=== PATIENT | male | born 1950 | race African-American/Black ===

== ENCOUNTER 2019-06-03 16:34 | Inpatient (IN) | payer MEDICARE, OTHER ==
[2019-06-03] MEDS ORDERED: NALOXONE 0.4 MG/ML 1 ML VIAL IV PRN (19:26)
--- NOTE | 2019-06-03 19:42 | P.HPIM ---
History of Present Illness H&P Date: 06/03/19 Chief Complaint: Cough, shortness of breath 69-year-old male with PMH of CVA with right-sided weakness, history of seizures, diabetes mellitus, hypertension presents to the ED for shortness of breath. Patient states that the symptoms of been ongoing for the past 2 weeks. He complains of cough and inability to bring up sputum. Symptoms continue to worsen which prompted the patient to come to the ED. He denies any chest pain, palpitations, nausea or vomiting, fever or chills, changes in urination or bowel habits. No changes in appetite or weight. EKG showed sinus tachycardia with heart rate 103, T-wave abnormalities. Patient was noted to have a T-max of 102.8 Fahrenheit, BP as low as 93/44. He was given 2.5 L bolus. He was given Tylenol 650 mg by mouth. CBC showed hemoglobin of 10.5, hematocrit 35%. BUN was 35. Magnesium was 2. Albumin was 3.3. Troponin was 0.18, 0.19. CRP was 54.7. Lactic acid was negative. Urinalysis showed moderate leukocyte esterase. Chest x-ray showed mild bibasilar airspace disease. Patient was tested for COVID at that time. Pro-calcitonin was elevated at 0.22. Blood cultures were collected. His home medication include aspirin 81 mg by mouth daily, Lipitor 40 mg by mouth daily, lispro on a sliding scale, Lantus 10 units at bedtime, Keppra 250 mg by mouth twice a day, lisinopril 10 mg by mouth once a day, Lyrica 150 mg by mouth twice a day, nifedipine 30 mg by mouth once a day, [place] 51 tab by mouth every 8 hours as needed for pain, omeprazole 20 mg by mouth daily, sertraline 100 mg by mouth daily. Review of Systems Pertinent positives and negatives as discussed in HPI, a complete review of systems was performed and all other systems are negative. Past Medical History Past Medical History: Diabetes Mellitus, Deep Vein Thrombosis (DVT) Additional Past Medical History / Comment(s): muscle weakness, urinary incontinence, hemiplegia, right bka, History of Any Multi-Drug Resistant Organisms: Unobtainable Smoking Status: Former smoker - Past Family History Father History Unknown: Yes Medications and Allergies Home Medications Medication Instructions Recorded Confirmed Type Acetaminophen Tab [Tylenol] 650 mg PO Q6H PRN 06/03/19 06/03/19 History Ascorbic Acid [Vitamin C] 500 mg PO DAILY 06/03/19 06/03/19 History Aspirin EC [Ecotrin Low Dose] 81 mg PO DAILY 06/03/19 06/03/19 History Atorvastatin Calcium [Lipitor] 40 mg PO DAILY 06/03/19 06/03/19 History HYDROcodone/APAP 5-325MG [[place] 1 tab PO Q8H PRN 06/03/19 06/03/19 History 5-325] Hydrocerin Cream 1 applic TOPICAL Q12H PRN 06/03/19 06/03/19 History INSULIN LISPRO (HumaLOG) [humaLOG] See Protocol SQ ACHS 06/03/19 06/03/19 History Insulin Glargine,Hum.rec.anlog 10 unit SQ HS 06/03/19 06/03/19 History [Lantus Solostar] Lisinopril [Zestril] 10 mg PO DAILY 06/03/19 06/03/19 History Magnesium Oxide [Magox 400] 400 mg PO DAILY 06/03/19 06/03/19 History Methocarbamol [Robaxin] 750 mg PO BID 06/03/19 06/03/19 History Multivitamins, Thera [Multivitamin 1 tab PO DAILY 06/03/19 06/03/19 History (formulary)] NIFEdipine [NIFEdipine ER] 30 mg PO DAILY 06/03/19 06/03/19 History Omeprazole 20 mg PO DAILY 06/03/19 06/03/19 History Pregabalin [Lyrica] 150 mg PO BID 06/03/19 06/03/19 History Sertraline [Zoloft] 100 mg PO DAILY 06/03/19 06/03/19 History levETIRAcetam 250 mg PO BID 06/03/19 06/03/19 History Allergies Allergy/AdvReac Type Severity Reaction Status Date / Time No Known Allergies Allergy Verified 06/03/19 18:54 Physical Exam Vitals: Intake and Output 06/03/19 06/03/19 06/03/19 06:59 14:59 22:59 Other: Weight 93 kg General: [non toxic], [no distress], [appears at stated age] Derm: [warm], [dry] Head: [atraumatic], [normocephalic], [symmetric] Eyes: [EOMI], [no lid lag], [anicteric sclera] Mouth: [no lip lesion], [mucus membranes moist] Cardiovascular: [S1S2 reg], [no murmur], [positive DP pulse left lower extremity], Lungs: [Coarse breath sounds bilateral], [no rhonchi, no rales] , [no accessory muscle use] Abdominal: [soft], [ nontender to palpation], [no guarding], [no appreciable organomegaly] Ext: [no gross muscle atrophy], [no edema], [no contractures], [right BKA] Neuro: [ CN II-XI grossly intact], [0 out of 5 strength in the right upper extremity] Psych: [Alert], [oriented], [appropriate affect] Thrombosis Risk Factor Assmnt - Choose All That Apply Each Factor Represents 1 point: Obesity (BMI >25) Each Risk Factor Represents 2 Points: Age 61-74 years Thrombosis Risk Factor Assessment Total Risk Factor Score: 3 Thrombosis Risk Factor Assessment Level: Moderate Risk Assessment and Plan Assessment: Sepsis likely related to COVID 19 pneumonia with possible superimposed bacterial pneumonia Troponin elevation likely demand ischemia from above process Abnormal urinalysis History of CVA Diabetes mellitus History of seizures Hypertension Patient does meet sepsis criteria with low BP responding to IVF. T-max of 102.8 Fahrenheit at outside hospital. Tachycardia with positive source of infection seen on chest x-ray. Urinalysis shows moderate leukocyte esterase. Elevated CRP. Chest x-ray showing bibasilar airspace disease. Plans: Continue Rocephin and doxycycline for possible community-acquired pneumonia. Follow blood cultures. Follow sputum culture. Hydroxychloroquine for COVID. Tylenol as needed for fever. Repeat chest x-ray tomorrow morning. Follow urine culture. Follow CPK, LDH, CRP, ferritin. Infectious disease consulted. EKG to check for QTC. Troponin 0.18, 0.19 with EKG showing sinus tachycardia and T-wave abnormality. Plans: Trend troponin/EKG to rule out ACS. Follow-up echocardiogram. Telemetry monitoring. Urinalysis positive leukocyte esterase. Plans: Continue Rocephin. Follow urine culture. Plans: Continue aspirin. Continue Lipitor. Plans: Insulin sliding scale. Regular Accu-Cheks. Hypoglycemic precautions. Plans: Continue Keppra. Plans: Continue lisinopril. Continue nifedipine. Monitor vitals, adjust medications as necessary. DVT prophylaxis: [Heparin] Discussed with: [Patient] Anticipated discharge: [2-3 days] Anticipated discharge place: [Home] A total of [45] minutes was spent on the care of this complex patient more than 50% of the time was spent in counseling and care coordination. Patient names his brother decision maker if he can't make decisions for himself. Patient would like to be full code after a long discussion.
[2019-06-03 20:30] LABS: Glucose,Whole Blood 277 mg/dL (75-99)
[2019-06-03] MEDS: HEPARIN SODIUM,PORCINE 5,000 UNIT/ML 1 ML VIAL SQ SCH (20:47)
[2019-06-03] MEDS: levETIRAcetam 250 MG TAB PO SCH (20:47)
[2019-06-03] MEDS: DOXYCYCLINE 100 MG CAP PO SCH (20:47)
[2019-06-03] MEDS: HYDROXYCHLOROQUINE SULFATE 200 MG TAB PO SCH (20:47)
[2019-06-03] MEDS: PREGABALIN 75 MG CAP PO SCH (20:48)
[2019-06-03 20:51] LABS: Basophils % (A) 0 %; Eosinophils % (A) 1 %; HCT 37.6 % (39.0-53.0); HGB 11.5 gm/dL (13.0-17.5); Hypochromasia Marked; Lymphocytes # (A) 0.9 k/uL (1.0-4.8); Lymphocytes % (A) 20 %; MCH 26.1 pg (25.0-35.0); MCHC 30.7 g/dL (31.0-37.0); MCV 85.2 fL (80.0-100.0); Mean Platelet Volume 8.5; Monocytes # (A) 0.2 k/uL (0-1.0); Monocytes % (A) 5 %; Neutrophils # (A) 3.1 k/uL (1.3-7.7); Neutrophils % (A) 71 %; Platelet Count 132 k/uL (150-450); RBC 4.42 m/uL (4.30-5.90); RDW 15.4 % (11.5-15.5); WBC 4.4 k/uL (3.8-10.6)
[2019-06-03] MEDS: ACETAMINOPHEN TAB 325 MG TAB PO PRN (20:53)
[2019-06-03 21:04] LABS: Albumin 3.5 g/dL (3.5-5.0); Potassium 4.6 mmol/L (3.5-5.1); Total Bilirubin 0.4 mg/dL (0.2-1.3); Total Protein 7.4 g/dL (6.3-8.2)
[2019-06-03] MEDS ORDERED: INSULIN ASPART (NovoLOG) 100 UNIT/ML VIAL SQ ONE (22:02)
[2019-06-04 02:05] LABS: Glucose,Whole Blood 200 mg/dL (75-99)
[2019-06-04 07:06] LABS: Glucose,Whole Blood 170 mg/dL (75-99)
[2019-06-04] MEDS: INSULIN ASPART (NovoLOG) 100 UNIT/ML VIAL SQ SCH ×3 (07:33→17:10)
[2019-06-04] MEDS: HEPARIN SODIUM,PORCINE 5,000 UNIT/ML 1 ML VIAL SQ SCH ×2 (07:33→20:28)
[2019-06-04] MEDS: SERTRALINE 100 MG TAB PO SCH (07:34)
[2019-06-04] MEDS: LISINOPRIL 10 MG TAB PO SCH (07:34)
[2019-06-04] MEDS: ASPIRIN 81 MG PO SCH (07:34)
[2019-06-04] MEDS: PREGABALIN 75 MG CAP PO SCH ×2 (07:34→20:28)
[2019-06-04] MEDS: ATORVASTATIN 40 MG TAB PO SCH (07:34)
[2019-06-04] MEDS: HYDROXYCHLOROQUINE SULFATE 200 MG TAB PO SCH ×2 (07:35→20:28)
[2019-06-04] MEDS: DOXYCYCLINE 100 MG CAP PO SCH ×2 (07:36→20:28)
[2019-06-04] MEDS: levETIRAcetam 250 MG TAB PO SCH ×2 (07:36→20:29)
[2019-06-04] MEDS: NIFEdipine XL 30 MG TAB.ER.24 PO SCH (07:36)
--- NOTE | 2019-06-04 08:13 | XR ---
EXAMINATION TYPE: XR chest 1V portable DATE OF EXAM: 06/04/2019 Comparison: None Clinical History: [id number] male COVID, PNA Findings: Heart normal size. Obscuration of the lower aortic descent. Focal bibasilar opacities and possible sm all left effusion. Impression: Focal bibasilar infiltrates. Possible small left effusion.
--- NOTE | 2019-06-04 08:34 | ECHOF ---
Referral Reason:SOB MEASUREMENTS -------- HEIGHT: 190.5 cm WEIGHT: 93.0 kg BP: 164/90 RVIDd: 2.9 cm (< 3.3) IVSd: 1.3 cm (0.6 - 1.1) LVIDd: 4.0 cm (3.9 - 5.3) LVPWd: 1.2 cm (0.6 - 1.1) IVSs: 1.5 cm LVIDs: 2.9 cm LVPWs: 1.7 cm LA Diam: 3.2 cm (2.7 - 3.8) LAESV Index (A-L): 18.66 ml/m Ao Diam: 3.4 cm (2.0 - 3.7) AV Cusp: 2.3 cm (1.5 - 2.6) MV EXCURSION: 18.829 mm (> 18.000) MV EF SLOPE: 108 mm/s (70 - 150) EPSS: 0.6 cm MV E Sourav: 0.85 m/s MV DecT: 160 ms MV A Sourav: 0.73 m/s MV E/A Ratio: 1.17 RAP: 5.00 mmHg RVSP: 37.90 mmHg FINDINGS -------- Sinus rhythm. This was a technically adequate study. The left ventricular size is normal. There is mild concentric left ventricular hypertrophy. Overa ll left ventricular systolic function is normal with, an EF between 55 - 60 %. The right ventricle is normal in size. Normal LA size by volume 22+/-6 ml/m2. The right atrial size is normal. The aortic valve is trileaflet, and appears structurally normal. No aortic stenosis or regurgitation. The mitral valve is normal. Mild mitral regurgitation is present. Mild tricuspid regurgitation present. There is mild pulmonary hypertension. The right ventricular systolic pressure, as measured by Doppler, is 37.90mmHg. There is no pulmonic regurgitation present. The aortic root size is normal. Normal inferior vena cava with normal inspiratory collapse consistent with estimated right atrial pre ssure of 5 mmHg. There is no pericardial effusion. CONCLUSIONS -------- 1. There is mild concentric left ventricular hypertrophy. 2. Overall left ventricular systolic function is normal with, an EF between 55 - 60 %. 3. Normal LA size by volume 22+/-6 ml/m2. 4. The aortic valve is trileaflet, and appears structurally normal. No aortic stenosis or regurgitati on. 5. Mild mitral regurgitation is present. 6. Mild tricuspid regurgitation present. 7. There is mild pulmonary hypertension. CORPORATE COMMUNICATIONS ASSOCIATE: Isabel Crisostomo RDCS
[2019-06-04 09:17] LABS: INR 0.9 (<1.2); Prothrombin Time 9.7 sec (9.0-12.0)
[2019-06-04 09:20] LABS: Basophils % (A) 0 %; Eosinophils % (A) 1 %; HCT 33.2 % (39.0-53.0); HGB 10.1 gm/dL (13.0-17.5); Hypochromasia Slight; Lymphocytes # (A) 0.8 k/uL (1.0-4.8); Lymphocytes % (A) 16 %; MCH 25.7 pg (25.0-35.0); MCHC 30.4 g/dL (31.0-37.0); MCV 84.7 fL (80.0-100.0); Mean Platelet Volume 8.5; Monocytes # (A) 0.2 k/uL (0-1.0); Monocytes % (A) 5 %; Neutrophils # (A) 3.5 k/uL (1.3-7.7); Neutrophils % (A) 76 %; Platelet Count 136 k/uL (150-450); RBC 3.93 m/uL (4.30-5.90); RDW 15.6 % (11.5-15.5); WBC 4.6 k/uL (3.8-10.6)
[2019-06-04 09:25] LABS: ALT 22 U/L (4-49); AST 30 U/L (17-59); African American GFR (CKD) >90 (>60 ml/min/1.73 sqM); Albumin 3.3 g/dL (3.5-5.0); Alkaline Phosphatase 87 U/L (38-126); Anion Gap 9 mmol/L; Blood Urea Nitrogen 32 mg/dL (9-20); C Reactive Protein 57.4 mg/L (<10.0); Calcium 7.7 mg/dL (8.4-10.2); Carbon Dioxide 22 mmol/L (22-30); Chloride 108 mmol/L (98-107); Glucose 171 mg/dL (74-99); LDH 754 U/L (313-618); Magnesium 2.2 mg/dL (1.6-2.3); Non-African American GFR(CKD) >90 (>60 ml/min/1.73 sqM); Potassium 4.6 mmol/L (3.5-5.1); Sodium 139 mmol/L (137-145); Total Bilirubin 0.3 mg/dL (0.2-1.3); Total Protein 7.3 g/dL (6.3-8.2)
[2019-06-04 11:45] LABS: Glucose,Whole Blood 141 mg/dL (75-99)
[2019-06-04 15:34] LABS: Ferritin 258.3 ng/mL (22.0-322.0)
[2019-06-04 16:35] LABS: Amorphous Sediment,Urine Rare /hpf; Appearance,Urine Turbid (Clear); Bacteria,Urine Many /hpf; Bilirubin,Urine Negative (Negative); Blood,Urine Small (Negative); Color,Urine Yellow; Glucose,Urine (UA) Negative (Negative); Granular Casts,Urine 24 /lpf (0); Hyaline Casts,Urine 15 /lpf (0-2); Ketones,Urine Negative (Negative); Leukocyte Esterase,Urine Large (Negative); Mucus,Urine Rare /hpf; Nitrite,Urine Positive (Negative); PH, Urine 5.5 (5.0-8.0); Protein,Urine 2+ (Negative); RBC,Urine 7 /hpf (0-5); Specific Gravity,Urine 1.021 (1.001-1.035); Urobilinogen,Urine <2.0 mg/dL (<2.0); WBC,Urine 107 /hpf (0-5)
[2019-06-04 17:02] LABS: Glucose,Whole Blood 140 mg/dL (75-99)
--- NOTE | 2019-06-04 17:22 | P.PN ---
Subjective Progress Note Date: 06/04/19 Principal diagnosis: COVID19 Patient was seen and examined. No acute events overnight. Discussed with nursing, confirms positive COVID result from outside hospital. Patient reports slightly worse breathing than yesterday. He denies any chest pain or palpitations. No nausea or vomiting. No fever or chills. Objective - Vital Signs Vital signs: Vital Signs Temp 100.9 F H 06/04/19 15:27 Pulse 94 06/04/19 15:27 Resp 20 06/04/19 15:27 BP 115/67 06/04/19 15:27 Pulse Ox 96 06/04/19 15:27 Intake & Output 06/03/19 06/04/19 06/04/19 18:59 06:59 18:59 Weight 93 kg Other: Voiding Method Urinal Urinal # Voids 1 2 # Bowel Movements 1 - Exam General: [non toxic], [no distress], [appears at stated age] Derm: [warm], [dry] Head: [atraumatic], [normocephalic], [symmetric] Eyes: [EOMI], [no lid lag], [anicteric sclera] Mouth: [no lip lesion], [mucus membranes moist] Cardiovascular: [S1S2 reg], [no murmur], [positive DP pulse left lower extremity], Lungs: [Coarse breath sounds bilateral], [no rhonchi, no rales] , [no accessory muscle use] Abdominal: [soft], [ nontender to palpation], [no guarding], [no appreciable organomegaly] Ext: [no gross muscle atrophy], [no edema], [no contractures], [right BKA] Neuro: [0 out of 5 strength in the right upper extremity] Psych: [Alert], [oriented], [appropriate affect] - Labs CBC & Chem 7: 06/04/19 08:53 06/04/19 08:53 Labs: Abnormal Lab Results - Last 24 Hours (Table) 06/03/19 06/03/19 06/03/19 Range/Units 20:29 20:40 20:40 RBC (4.30-5.90) m/uL Hgb 11.5 L (13.0-17.5) gm/dL Hct 37.6 L (39.0-53.0) % MCHC 30.7 L (31.0-37.0) g/dL RDW (11.5-15.5) % Plt Count 132 L (150-450) k/uL Lymphocytes # 0.9 L (1.0-4.8) k/uL Chloride (98-107) mmol/L Carbon Dioxide 20 L (22-30) mmol/L BUN 40 H (9-20) mg/dL Glucose 269 H (74-99) mg/dL POC Glucose (mg/dL) 277 H (75-99) mg/dL Calcium 8.0 L (8.4-10.2) mg/dL Lactate Dehydrogenase (313-618) U/L C-Reactive Protein (<10.0) mg/L Albumin (3.5-5.0) g/dL Urine Protein (Negative) Urine Blood (Negative) Ur Leukocyte Esterase (Negative) Urine RBC (0-5) /hpf Urine WBC (0-5) /hpf Urine WBC Clumps (None) /hpf Amorphous Sediment (None) /hpf Urine Bacteria (None) /hpf Hyaline Casts (0-2) /lpf Urine Mucus (None) /hpf 06/04/19 06/04/19 06/04/19 Range/Units 02:03 07:03 08:53 RBC 3.93 L (4.30-5.90) m/uL Hgb 10.1 L (13.0-17.5) gm/dL Hct 33.2 L (39.0-53.0) % MCHC 30.4 L (31.0-37.0) g/dL RDW 15.6 H (11.5-15.5) % Plt Count 136 L (150-450) k/uL Lymphocytes # 0.8 L (1.0-4.8) k/uL Chloride (98-107) mmol/L Carbon Dioxide (22-30) mmol/L BUN (9-20) mg/dL Glucose (74-99) mg/dL POC Glucose (mg/dL) 200 H 170 H (75-99) mg/dL Calcium (8.4-10.2) mg/dL Lactate Dehydrogenase (313-618) U/L C-Reactive Protein (<10.0) mg/L Albumin (3.5-5.0) g/dL Urine Protein (Negative) Urine Blood (Negative) Ur Leukocyte Esterase (Negative) Urine RBC (0-5) /hpf Urine WBC (0-5) /hpf Urine WBC Clumps (None) /hpf Amorphous Sediment (None) /hpf Urine Bacteria (None) /hpf Hyaline Casts (0-2) /lpf Urine Mucus (None) /hpf 06/04/19 06/04/19 06/04/19 Range/Units 08:53 11:42 15:15 RBC (4.30-5.90) m/uL Hgb (13.0-17.5) gm/dL Hct (39.0-53.0) % MCHC (31.0-37.0) g/dL RDW (11.5-15.5) % Plt Count (150-450) k/uL Lymphocytes # (1.0-4.8) k/uL Chloride 108 H (98-107) mmol/L Carbon Dioxide (22-30) mmol/L BUN 32 H (9-20) mg/dL Glucose 171 H (74-99) mg/dL POC Glucose (mg/dL) 141 H (75-99) mg/dL Calcium 7.7 L (8.4-10.2) mg/dL Lactate Dehydrogenase 754 H (313-618) U/L C-Reactive Protein 57.4 H (<10.0) mg/L Albumin 3.3 L (3.5-5.0) g/dL Urine Protein 2+ H (Negative) Urine Blood Small H (Negative) Ur Leukocyte Esterase Large H (Negative) Urine RBC 7 H (0-5) /hpf Urine WBC 107 H (0-5) /hpf Urine WBC Clumps Many H (None) /hpf Amorphous Sediment Rare H (None) /hpf Urine Bacteria Many H (None) /hpf Hyaline Casts 15 H (0-2) /lpf Urine Mucus Rare H (None) /hpf 06/04/19 Range/Units 17:00 RBC (4.30-5.90) m/uL Hgb (13.0-17.5) gm/dL Hct (39.0-53.0) % MCHC (31.0-37.0) g/dL RDW (11.5-15.5) % Plt Count (150-450) k/uL Lymphocytes # (1.0-4.8) k/uL Chloride (98-107) mmol/L Carbon Dioxide (22-30) mmol/L BUN (9-20) mg/dL Glucose (74-99) mg/dL POC Glucose (mg/dL) 140 H (75-99) mg/dL Calcium (8.4-10.2) mg/dL Lactate Dehydrogenase (313-618) U/L C-Reactive Protein (<10.0) mg/L Albumin (3.5-5.0) g/dL Urine Protein (Negative) Urine Blood (Negative) Ur Leukocyte Esterase (Negative) Urine RBC (0-5) /hpf Urine WBC (0-5) /hpf Urine WBC Clumps (None) /hpf Amorphous Sediment (None) /hpf Urine Bacteria (None) /hpf Hyaline Casts (0-2) /lpf Urine Mucus (None) /hpf Assessment and Plan Assessment: Sepsis likely related to COVID 19 pneumonia with possible superimposed bacterial pneumonia Troponin elevation likely demand ischemia from above process Abnormal urinalysis History of CVA Diabetes mellitus History of seizures Hypertension Patient does meet sepsis criteria with low BP responding to IVF. T-max of 102.8 Fahrenheit at outside hospital. Tachycardia with positive source of infection seen on chest x-ray. Urinalysis shows moderate leukocyte esterase. Elevated CRP. Chest x-ray showing bibasilar airspace disease. Plans: Continue Rocephin and doxycycline for possible community-acquired pneumonia. Follow blood c ultures. Follow sputum culture. Hydroxychloroquine for COVID. Tylenol as needed for fever. Repeat chest x-ray tomorrow morning. Follow urine culture. Follow CPK, LDH, CRP, ferritin. Infectious disease consulted. EKG to check for QTC. Troponin 0.18, 0.19, less than 0.012 with EKG showing sinus tachycardia and T- wave abnormality. Echocardiogram shows EF 55-60%. Plans: ACS ruled out. Tele metry monitoring. Urinalysis positive leukocyte esterase. Plans: Continue Rocephin. Follow urine culture. Plans: Continue aspirin. Continue Lipitor. Plans: Insulin sliding scale. Regular Accu-Cheks. Hypoglycemic precautions. Plans: Continue Keppra. Plans: Continue lisinopril. Continue nifedipine. Monitor vitals, adjust medications as necessary. [Patient currently on 2 L nasal cannula. Continues to spike fevers. Treated with hydroxychloroquine. Urine culture pending. Blood culture pending. Sputum culture pending. Infectious disease consultation pending. He is pending clinical improvement.]
[2019-06-04] MEDS: ACETAMINOPHEN TAB 325 MG TAB PO PRN (20:28)
[2019-06-04 21:13] LABS: Glucose,Whole Blood 130 mg/dL (75-99)
[2019-06-04] MEDS ORDERED: SODIUM CHLORIDE 0.9% 1,000 ML IV ONE (23:43)
--- NOTE | 2019-06-04 23:52 | P.CONS ---
History of Present Illness - Reason for Consult Consult date: 06/04/19 COVID19 Infection Requesting physician: Michael Perdomo - Chief Complaint shortness of breath x 2 weeks - History of Present Illness Patient is a 69-year-old -[place] male with a past medical history (CVA with right-sided weakness history of seizure disorder and diabetes presenting to the outside facility ER with chief complaints of increasing shortness of breath patient symptom has been getting worse for about 2 weeks before he presented to hospital patient denies of any chest pain he did have some cough but no sputum denies any nausea no vomiting abdominal no diarrhea on arrival to the ER the patient was febrile with a temperature of 102 F he was slightly hypertensive requiring a fluid bolus patient did have elevated CRP of 54.7 lipase was negative patient did have chest pain suggestive of bibasilar airspace disease patient was tested for COVID-19 and subsequently patient be transferred to this facility for further management of underlying respiratory condition patient did have a chest x-ray completed this morning which shows focal bibasilar infiltrate possible small effusion this patient afebrile to low-grade fever 100.9 this afternoon and patient requires low-dose supplemental oxygen on a CBC did have evidence of leukopenia elevated LDH and a CRP will not show large leukocyte esterase is many WBC in clumps patient is currently being treated with Rocephin Vibramycin Plaquenil infectious was consulted for further recommendation regarding antibiotic therapy most of the question has been obtained from review the chart as the patient does not good historian. Review of Systems Positive point has been mentioned in HPI complete review could not be obtained because of underlying mental status Past Medical History Past Medical History: Diabetes Mellitus, Deep Vein Thrombosis (DVT) Additional Past Medical History / Comment(s): muscle weakness, urinary incontinence, hemiplegia, right bka, History of Any Multi-Drug Resistant Organisms: Unobtainable Smoking Status: Former smoker - Past Family History Father History Unknown: Yes Medications and Allergies Home Medications Medication Instructions Recorded Confirmed Type Acetaminophen Tab [Tylenol] 650 mg PO Q6H PRN 06/03/19 06/03/19 History Ascorbic Acid [Vitamin C] 500 mg PO DAILY 06/03/19 06/03/19 History Aspirin EC [Ecotrin Low Dose] 81 mg PO DAILY 06/03/19 06/03/19 History Atorvastatin Calcium [Lipitor] 40 mg PO DAILY 06/03/19 06/03/19 History HYDROcodone/APAP 5-325MG [[place] 1 tab PO Q8H PRN 06/03/19 06/03/19 History 5-325] Hydrocerin Cream 1 applic TOPICAL Q12H PRN 06/03/19 06/03/19 History INSULIN LISPRO (HumaLOG) [humaLOG] See Protocol SQ ACHS 06/03/19 06/03/19 History Insulin Glargine,Hum.rec.anlog 10 unit SQ HS 06/03/19 06/03/19 History [Lantus Solostar] Lisinopril [Zestril] 10 mg PO DAILY 06/03/19 06/03/19 History Magnesium Oxide [Magox 400] 400 mg PO DAILY 06/03/19 06/03/19 History Methocarbamol [Robaxin] 750 mg PO BID 06/03/19 06/03/19 History Multivitamins, Thera [Multivitamin 1 tab PO DAILY 06/03/19 06/03/19 History (formulary)] NIFEdipine [NIFEdipine ER] 30 mg PO DAILY 06/03/19 06/03/19 History Omeprazole 20 mg PO DAILY 06/03/19 06/03/19 History Pregabalin [Lyrica] 150 mg PO BID 06/03/19 06/03/19 History Sertraline [Zoloft] 100 mg PO DAILY 06/03/19 06/03/19 History levETIRAcetam 250 mg PO BID 06/03/19 06/03/19 History Allergies Allergy/AdvReac Type Severity Reaction Status Date / Time No Known Allergies Allergy Verified 06/03/19 18:54 Physical Exam Vitals: Vital Signs Temp Pulse Resp BP Pulse Ox 06/04/19 11:50 98 20 117/69 88 L 06/04/19 09:43 95 18 100 06/04/19 07:27 99.9 F H 90 20 126/73 97 06/04/19 05:34 99 06/04/19 03:35 98.7 F 91 18 164/90 98 06/04/19 01:24 99 06/03/19 23:26 98.8 F 95 18 137/74 91 L 06/03/19 19:29 98.3 F 97 18 150/75 97 Intake and Output 06/03/19 06/04/19 06/04/19 22:59 06:59 14:59 Other: Voiding Method Urinal Urinal # Voids 0 1 # Bowel Movements 1 Weight 93 kg GENERAL DESCRIPTION: Elderly male lying in bed, no distress. No tachypnea or accessory muscle of respiration use. HEENT: Shows Pallor , no scleral icterus. Oral mucous membrane is dry. NECK: Trachea central, no thyromegaly. LUNGS: Unlabored breathing. Decreased breath sound at the base. No wheeze or crackle. HEART: S1, S2, regular rate and rhythm. ABDOMEN: Soft, no tenderness , guarding or rigidity EXTREMITIES: No edema of feet. SKIN: No rash, no masses palpable. NEUROLOGICAL: The patient is awake, alert, oriented x2, mood and affect normal. Results CBC & Chem 7: 06/04/19 08:53 06/04/19 08:53 Labs: Abnormal Lab Results - Last 24 Hours (Table) 06/03/19 06/03/19 06/03/19 Range/Units 20:29 20:40 20:40 RBC (4.30-5.90) m/uL Hgb 11.5 L (13.0-17.5) gm/dL Hct 37.6 L (39.0-53.0) % MCHC 30.7 L (31.0-37.0) g/dL RDW (11.5-15.5) % Plt Count 132 L (150-450) k/uL Lymphocytes # 0.9 L (1.0-4.8) k/uL Chloride (98-107) mmol/L Carbon Dioxide 20 L (22-30) mmol/L BUN 40 H (9-20) mg/dL Glucose 269 H (74-99) mg/dL POC Glucose (mg/dL) 277 H (75-99) mg/dL Calcium 8.0 L (8.4-10.2) mg/dL Lactate Dehydrogenase (313-618) U/L C-Reactive Protein (<10.0) mg/L Albumin (3.5-5.0) g/dL 06/04/19 06/04/19 06/04/19 Range/Units 02:03 07:03 08:53 RBC 3.93 L (4.30-5.90) m/uL Hgb 10.1 L (13.0-17.5) gm/dL Hct 33.2 L (39.0-53.0) % MCHC 30.4 L (31.0-37.0) g/dL RDW 15.6 H (11.5-15.5) % Plt Count 136 L (150-450) k/uL Lymphocytes # 0.8 L (1.0-4.8) k/uL Chloride (98-107) mmol/L Carbon Dioxide (22-30) mmol/L BUN (9-20) mg/dL Glucose (74-99) mg/dL POC Glucose (mg/dL) 200 H 170 H (75-99) mg/dL Calcium (8.4-10.2) mg/dL Lactate Dehydrogenase (313-618) U/L C-Reactive Protein (<10.0) mg/L Albumin (3.5-5.0) g/dL 06/04/19 06/04/19 Range/Units 08:53 11:42 RBC (4.30-5.90) m/uL Hgb (13.0-17.5) gm/dL Hct (39.0-53.0) % MCHC (31.0-37.0) g/dL RDW (11.5-15.5) % Plt Count (150-450) k/uL Lymphocytes # (1.0-4.8) k/uL Chloride 108 H (98-107) mmol/L Carbon Dioxide (22-30) mmol/L BUN 32 H (9-20) mg/dL Glucose 171 H (74-99) mg/dL POC Glucose (mg/dL) 141 H (75-99) mg/dL Calcium 7.7 L (8.4-10.2) mg/dL Lactate Dehydrogenase 754 H (313-618) U/L C-Reactive Protein 57.4 H (<10.0) mg/L Albumin 3.3 L (3.5-5.0) g/dL Assessment and Plan Assessment: 1-patient presented to the hospital with increasing shortness of breath in this patient who did have a fever of 102 F patient did have lymphopenia elevated LDH and CRP high clinical suspicion for acute COVID-19 infection in this patient who is from [facility] with a high incidence of COVID-19 cases so far. 2-patient did have a positive UA in this patient who is elderly and possible urinary outflow obstruction from enlarged prostate possible component of symptomatic urinary tract infection from enteric gram-negative pathogen (1) UTI (urinary tract infection) Current Visit: Yes Status: Acute Code(s): N39.0 - URINARY TRACT INFECTION, SITE NOT SPECIFIED SNOMED Code(s): 87434557 (2) COVID-19 virus infection Current Visit: Yes Status: Acute Code(s): U07.1 - COVID-19 SNOMED Code(s): 845823888 (3) Pneumonia Current Visit: Yes Status: Acute Code(s): J18.9 - PNEUMONIA, UNSPECIFIED ORGANISM SNOMED Code(s): 610326612 Plan: 1-We will wait for the COVID-19 testing to be completed 2-patient will treat with the Plaquenil and Zinc per protocol may need to add low-dose steroid if the patient require any further Supplemental oxygen 3-Rocephin 1 g daily for underlying urinary tract infection We will follow on clinical condition and cultures to further adjust medication if needed Thank you for this consultation we will follow the patient along with you Time with Patient: Greater than 30
[2019-06-04] MEDS: SODIUM CHLORIDE 0.9% 1,000 ML IV SCH (23:56)
[2019-06-05 02:24] LABS: Glucose,Whole Blood 110 mg/dL (75-99)
[2019-06-05 07:14] LABS: Glucose,Whole Blood 142 mg/dL (75-99)
[2019-06-05] MEDS: INSULIN ASPART (NovoLOG) 100 UNIT/ML VIAL SQ SCH ×3 (08:15→17:23)
[2019-06-05] MEDS: HEPARIN SODIUM,PORCINE 5,000 UNIT/ML 1 ML VIAL SQ SCH ×2 (08:15→20:16)
[2019-06-05] MEDS: ACETAMINOPHEN TAB 325 MG TAB PO PRN ×2 (08:15→15:56)
[2019-06-05] MEDS: HYDROXYCHLOROQUINE SULFATE 200 MG TAB PO SCH ×2 (08:16→20:16)
[2019-06-05] MEDS: DOXYCYCLINE 100 MG CAP PO SCH ×2 (08:16→20:16)
[2019-06-05] MEDS: NIFEdipine XL 30 MG TAB.ER.24 PO SCH (08:16)
[2019-06-05] MEDS: SERTRALINE 100 MG TAB PO SCH (08:16)
[2019-06-05] MEDS: PREGABALIN 75 MG CAP PO SCH ×2 (08:16→20:16)
[2019-06-05] MEDS: LISINOPRIL 10 MG TAB PO SCH (08:16)
[2019-06-05] MEDS: levETIRAcetam 250 MG TAB PO SCH ×2 (08:16→20:16)
[2019-06-05] MEDS: ATORVASTATIN 40 MG TAB PO SCH (08:17)
[2019-06-05] MEDS: ASPIRIN 81 MG PO SCH (08:17)
[2019-06-05] MEDS: ZINC SULFATE 220 MG CAP PO SCH (09:47)
[2019-06-05 10:49] LABS: Glucose,Whole Blood 100 mg/dL (75-99)
--- NOTE | 2019-06-05 14:42 | P.PN ---
<Dalia Souza - Last Filed: 06/05/19 14:44> Subjective Progress Note Date: 06/05/19 CHIEF COMPLAINT: Covid 19 HISTORY OF PRESENT ILLNESS: 69-year-old male with PMH of CVA with right-sided weakness, history of seizures, diabetes mellitus, hypertension presents to the ED for shortness of breath. Patient states that the symptoms of been ongoing for the past 2 weeks. He complains of cough and inability to bring up sputum. Symptoms continue to worsen which prompted the patient to come to the ED. He denies any chest pain, palpitations, nausea or vomiting, fever or chills, changes in urination or bowel habits. No changes in appetite or weight. EKG showed sinus tachycardia with heart rate 103, T-wave abnormalities. Patient was noted to have a T-max of 102.8 Fahrenheit, BP as low as 93/44. He was given 2.5 L bolus. He was given Tylenol 650 mg by mouth. CBC showed hemoglobin of 10.5, hematocrit 35%. BUN was 35. Magnesium was 2. Albumin was 3.3. Troponin was 0.18, 0.19. CRP was 54.7. Lactic acid was negative. Urinalysis showed moderate leukocyte esterase. Chest x-ray showed mild bibasilar airspace disease. Patient was tested for COVID at that time. Pro-calcitonin was elevated at 0.22. Blood cultures were collected. His home medication include aspirin 81 mg by mouth daily, Lipitor 40 mg by mouth daily, lispro on a sliding scale, Lantus 10 units at bedtime, Keppra 250 mg by mouth twice a day, lisinopril 10 mg by mouth once a day, Lyrica 150 mg by mouth twice a day, nifedipine 30 mg by mouth once a day, [place] 51 tab by mouth every 8 hours as needed for pain, omeprazole 20 mg by mouth daily, sertraline 100 mg by mouth daily. 06/04/2019: Patient was seen and examined. No acute events overnight. Discussed with nursing, confirms positive COVID result from outside hospital. Patient reports slightly worse breathing than yesterday. He denies any chest pain or palpitations. No nausea or vomiting. No fever or chills. 06/05/2019: Patient examined at the bedside this morning. Patient is on 2L NC. Oxygen saturations greater than 92%. He currently denies shortness of breath. Reports occasional nonproductive cough. Patient remains febrile. Temperature this morning 100.9F. PHYSICAL EXAM: VITAL SIGNS: Reviewed GENERAL: Well-developed in no acute distress HEENT: No sclera icterus. Extraocular movements grossly intact. Moist buccal mucosa. Head is atraumatic, normocephalic. Hears conversational speech. No nasal drainage. NECK: Supple without lymphadenopathy. CHEST: Lung sounds coarse. Equal bilateral excursions. CARDIOVASCULAR: Regular rate with regular rhythm. Palpable pulses. ABDOMEN: Soft. Nondistended. Nontender. MUSCULOSKELETAL: No clubbing or cyanosis. NEUROLOGIC: No focal or lateralizing signs. Cranial nerves II through XII grossly intact. PSYCH: Appropriate affect. Alert and oriented to person, place and time. SKIN: Well perfused. Good skin turgor. ASSESSMENT AND PLAN: 1. Covid19 pneumonia with sepsis, possible superimposed bacterial pneumonia -Supportive care -Continue doxycycline and Rocephin -Continue Plaquenil and zinc -Continue contact and droplet isolation precautions -Continue to monitor labs -Infectious disease following 2. Elevated troponins, likely demand ischemia from above process -ACS ruled out -Echo reveals ejection fraction 55-60% -Continue telemetry monitoring 3. Abnormal urinalysis -UA positive leukocyte esterase -Continue Rocephin -Await results of urine culture 4. History of CVA -Continue aspirin and Lipitor 5. Diabetes mellitus -Continue Accu-checks -NovoLog sliding scale 6. History of seizures -Continue Keppra 7. History of hypertension -Continue current anti-hypertensive -Monitor blood pressure DVT prophylaxis: Heparin subcu Discussed with: Nursing, patient Anticipated discharge: Possibly with the next 24-[address]: Return to [facility] Nurse practitioner note has been reviewed by physician. Signing provider agrees with the documented findings, assessment, and plan of care. Objective - Vital Signs Vital signs: Vital Signs Temp 99.2 F 06/05/19 11:18 Pulse 89 06/05/19 11:18 Resp 18 06/05/19 11:18 BP 100/54 06/05/19 11:18 Pulse Ox 97 06/05/19 14:01 Intake & Output 06/04/19 06/05/19 06/05/19 18:59 06:59 18:59 Intake Total 718 Balance 718 Intake: IV 600 Sodium Chloride 0.9% 1, 600 000 ml @ 75 mls/hr IV . [id number] [facility] Rx#:[id number] Oral 118 Other: Voiding Method Urinal Urinal Urinal Diaper # Voids 2 1 - Labs CBC & Chem 7: 06/04/19 08:53 06/04/19 08:53 Labs: Abnormal Lab Results - Last 24 Hours (Table) 06/04/19 06/04/19 06/04/19 Range/Units 15:15 17:00 21:11 POC Glucose (mg/dL) 140 H 130 H (75-99) mg/dL Urine Protein 2+ H (Negative) Urine Blood Small H (Negative) Ur Leukocyte Esterase Large H (Negative) Urine RBC 7 H (0-5) /hpf Urine WBC 107 H (0-5) /hpf Urine WBC Clumps Many H (None) /hpf Amorphous Sediment Rare H (None) /hpf Urine Bacteria Many H (None) /hpf Hyaline Casts 15 H (0-2) /lpf Urine Mucus Rare H (None) /hpf 06/05/19 06/05/19 06/05/19 Range/Units 02:23 07:13 10:48 POC Glucose (mg/dL) 110 H 142 H 100 H (75-99) mg/dL Urine Protein (Negative) Urine Blood (Negative) Ur Leukocyte Esterase (Negative) Urine RBC (0-5) /hpf Urine WBC (0-5) /hpf Urine WBC Clumps (None) /hpf Amorphous Sediment (None) /hpf Urine Bacteria (None) /hpf Hyaline Casts (0-2) /lpf Urine Mucus (None) /hpf Microbiology - Last 24 Hours (Table) 06/04/19 15:15 Urine Culture - Preliminary Urine,Voided <Michael Perdomo - Last Filed: 06/05/19 17:29> Objective - Vital Signs Vital signs: Vital Signs Temp 98.2 F 06/05/19 15:09 Pulse 91 06/05/19 15:50 Resp 18 06/05/19 15:09 BP 116/63 06/05/19 15:50 Pulse Ox 98 06/05/19 15:09 Intake & Output 06/04/19 06/05/19 06/05/19 18:59 06:59 18:59 Intake Total 718 Balance 718 Intake: IV 600 Sodium Chloride 0.9% 1, 600 000 ml @ 75 mls/hr IV . [id number] [facility] Rx#:[id number] Oral 118 Other: Voiding Method Urinal Urinal Diaper # Voids 2 1 - Labs CBC & Chem 7: 06/04/19 08:53 06/04/19 08:53 Labs: Abnormal Lab Results - Last 24 Hours (Table) 06/04/19 06/05/19 06/05/19 Range/Units 21:11 02:23 07:13 POC Glucose (mg/dL) 130 H 110 H 142 H (75-99) mg/dL 06/05/19 06/05/19 Range/Units 10:48 16:57 POC Glucose (mg/dL) 100 H 151 H (75-99) mg/dL Microbiology - Last 24 Hours (Table) 06/04/19 15:15 Urine Culture - Preliminary Urine,Voided Assessment and Plan Assessment: I saw and evaluated the patient and discussed the care with [Jaja Souza ], WALT on [06/05/2019 ]. I agree with the subjective, assessment and plan as documented in the note above. Patient complains of sharp stabbing chest pain only when he coughs. Unlikely to be ACS. Morphine as needed started. Continue Rocephin for UTI along with doxycycline for concerns of community pneumonia. Continue hydroxychloroquine. Infectious disease following. He continues to be on 2 L nasal cannula will need to be weaned off. Repeat blood work tomorrow. Potential discharge in 1-2 days. Physical exam: General: [Non toxic],[Ill appearing], [No distress] Skin: [warm], [dry] Lungs: [chest rise symmetrical], [no accessory muscle use], [no conversational dyspnea] Cardiovascular: [ + dorsal pedis pulse bilateral], [capillary refill<2 seconds, [no lower extremity edema]
--- NOTE | 2019-06-05 15:07 | CDI ---
Documentation Clarification Form Date: 06/05/2019 02:31:41 PM From: Ellie Madrid RN CCDS Admit Date: 06/03/2019 04:36:00 PM Patient Name: Kassandra Woodward Visit Number: [id number] Discharge Date: ATTENTION: The Clinical Documentation Specialists (CDI) and [facility] Coding Staff appreciate your assistance in clarifying documentation. Please respond to the clarification below the line at the bottom and electronically sign. The CDI & [facility] Coding staff will review the response and follow-up if needed. Please note: Queries are made part of the Legal Health Record. If you have any questions, please contact the author of this message via ITS. Dr. Michael Perdomo, Troponin elevation likely demand ischemia from above process is documented in H&P 06/02 and Progress Note 06/03 History/Risk Factors: 69-year-old male presents to the ED as a transfer from an outside hospital for positive COVID 19 presented there with shortness of breath and cough. Medical History CVA, Seizure disorder, DM, Clinical Indicators: Per H&P pt was febrile at outside facility Temp 102 F, VSS 06/02 150/75 97 98.3 18 97% From H&P 06/02 Troponin 0.18, 0.19 with EKG showing sinus tachycardia and T-wave abnormality. CXR 06/03 Focal bibasilar infiltrates possible small left pleural effusion Echo 06/03 Mild concentric left ventricular hypertrophy. Overall left ventricular systolic function is normal with, an EF between 55 60% Mild mitral regurgitation is present, mild tricuspid regurgitation is present. There is mild pulmonary hypertension. Treatment: Echocardiogram. Telemetry monitoring. 06/02 received fluid bolus at outside facility. 06/03 Rocephin Ivpb Daily, 06/02 Vibramycin Po Bid, 06/02 Plaquenil Po Bid x 8 doses, 06/03 0.9ns 1L bolus followed by 75cchr In your professional opinion, can you please clarify the demand ischemia? Type 2 ID secondary to demand ischemia in the setting of Sepsis, COVID 19 pneumonia Type 2 ID secondary to demand ischemia due to (please specify) Type 2 ID Ruled Out Other, please specify Unable to determine (Last Revision: May 2017) type 2 ID demand ischemia in setting of sepsis COVID 19 MTDD
[2019-06-05] MEDS ORDERED: MORPHINE SULFATE 2 MG/ML SYRINGE IVP PRN (15:51)
[2019-06-05] MEDS: SODIUM CHLORIDE 0.9% 1,000 ML IV SCH (15:56)
[2019-06-05 16:58] LABS: Glucose,Whole Blood 151 mg/dL (75-99)
[2019-06-05 21:05] LABS: Glucose,Whole Blood 193 mg/dL (75-99)
--- NOTE | 2019-06-06 | PN ---
PROGRESS NOTE DATE OF SERVICE: 06/05/2019 REASON FOR FOLLOWUP: Acute COVID-19 pneumonia. INTERVAL HISTORY: The patient is currently afebrile. The patient is breathing more comfortably. He is more awake and alert today. Denies having any chest pain. Occasional cough. No abdominal pain or diarrhea. PHYSICAL EXAMINATION: Blood pressure is 105/65 with a pulse of 83, temperature 98.8. He is 98% on 2 L nasal cannula. General description is an elderly male lying in bed in no distress. RESPIRATORY SYSTEM: Unlabored breathing with decreased intensity of breath sounds. No wheeze. HEART: S1, S2. Regular rate and rhythm. ABDOMEN: Soft. No tenderness. LABS: No new labs have been obtained today. DIAGNOSTIC IMPRESSION AND PLAN: 1. Patient with acute COVID-19 pneumonia, for which the patient is currently covered with Plaquenil and zinc; to continue. 2. Patient with Gram-negative urinary tract infection, covered with Rocephin; to continue and follow cultures. MMODL / IJN: [id number] /
[2019-06-06 02:33] LABS: Glucose,Whole Blood 148 mg/dL (75-99)
[2019-06-06] MEDS: ACETAMINOPHEN TAB 325 MG TAB PO PRN (03:09)
[2019-06-06] MEDS: SODIUM CHLORIDE 0.9% 1,000 ML IV SCH ×2 (03:09→17:10)
[2019-06-06 06:57] LABS: Glucose,Whole Blood 143 mg/dL (75-99)
[2019-06-06] MEDS: PREGABALIN 75 MG CAP PO SCH ×2 (07:46→20:37)
[2019-06-06] MEDS: ATORVASTATIN 40 MG TAB PO SCH (07:46)
[2019-06-06] MEDS: LISINOPRIL 10 MG TAB PO SCH (07:46)
[2019-06-06] MEDS: SERTRALINE 100 MG TAB PO SCH (07:46)
[2019-06-06] MEDS: HEPARIN SODIUM,PORCINE 5,000 UNIT/ML 1 ML VIAL SQ SCH ×2 (07:47→20:38)
[2019-06-06] MEDS: HYDROXYCHLOROQUINE SULFATE 200 MG TAB PO SCH ×2 (07:47→20:38)
[2019-06-06] MEDS: DOXYCYCLINE 100 MG CAP PO SCH ×2 (07:47→20:37)
[2019-06-06] MEDS: ZINC SULFATE 220 MG CAP PO SCH (07:47)
[2019-06-06] MEDS: NIFEdipine XL 30 MG TAB.ER.24 PO SCH (07:48)
[2019-06-06] MEDS: levETIRAcetam 250 MG TAB PO SCH ×2 (07:48→20:37)
[2019-06-06] MEDS: ASPIRIN 81 MG PO SCH (07:50)
[2019-06-06] MEDS: INSULIN ASPART (NovoLOG) 100 UNIT/ML VIAL SQ SCH ×3 (07:50→17:11)
[2019-06-06 08:37] LABS: Basophils % (A) 0 %; Eosinophils % (A) 1 %; HCT 30.2 % (39.0-53.0); HGB 9.3 gm/dL (13.0-17.5); Hypochromasia Moderate; Lymphocytes # (A) 0.9 k/uL (1.0-4.8); Lymphocytes % (A) 26 %; MCH 25.5 pg (25.0-35.0); MCHC 30.7 g/dL (31.0-37.0); MCV 83.1 fL (80.0-100.0); Mean Platelet Volume 8.5; Monocytes # (A) 0.2 k/uL (0-1.0); Monocytes % (A) 6 %; Neutrophils # (A) 2.1 k/uL (1.3-7.7); Neutrophils % (A) 64 %; Platelet Count 140 k/uL (150-450); RBC 3.63 m/uL (4.30-5.90); RDW 15.2 % (11.5-15.5); WBC 3.3 k/uL (3.8-10.6)
[2019-06-06 08:40] LABS: ALT 16 U/L (4-49); AST 23 U/L (17-59); African American GFR (CKD) >90 (>60 ml/min/1.73 sqM); Albumin 2.8 g/dL (3.5-5.0); Alkaline Phosphatase 74 U/L (38-126); Anion Gap 8 mmol/L; Blood Urea Nitrogen 20 mg/dL (9-20); Calcium 7.7 mg/dL (8.4-10.2); Carbon Dioxide 20 mmol/L (22-30); Chloride 112 mmol/L (98-107); Creatine Kinase 75 U/L (55-170); Glucose 124 mg/dL (74-99); LDH 442 U/L (313-618); Non-African American GFR(CKD) >90 (>60 ml/min/1.73 sqM); Potassium 4.2 mmol/L (3.5-5.1); Sodium 140 mmol/L (137-145); Total Bilirubin 0.2 mg/dL (0.2-1.3); Total Protein 6.3 g/dL (6.3-8.2)
[2019-06-06 11:16] LABS: Glucose,Whole Blood 146 mg/dL (75-99)
--- NOTE | 2019-06-06 13:46 | P.PN ---
<Dalia Souza Jamie - Last Filed: 06/06/19 13:40> Subjective Progress Note Date: 06/06/19 CHIEF COMPLAINT: Covid 19 HISTORY OF PRESENT ILLNESS: 69-year-old male with PMH of CVA with right-sided weakness, history of seizures, diabetes mellitus, hypertension presents to the ED for shortness of breath. Patient states that the symptoms of been ongoing for the past 2 weeks. He complains of cough and inability to bring up sputum. Symptoms continue to worsen which prompted the patient to come to the ED. He denies any chest pain, palpitations, nausea or vomiting, fever or chills, changes in urination or bowel habits. No changes in appetite or weight. EKG showed sinus tachycardia with heart rate 103, T-wave abnormalities. Patient was noted to have a T-max of 102.8 Fahrenheit, BP as low as 93/44. He was given 2.5 L bolus. He was given Tylenol 650 mg by mouth. CBC showed hemoglobin of 10.5, hematocrit 35%. BUN was 35. Magnesium was 2. Albumin was 3.3. Troponin was 0.18, 0.19. CRP was 54.7. Lactic acid was negative. Urinalysis showed moderate leukocyte esterase. Chest x-ray showed mild bibasilar airspace disease. Patient was tested for COVID at that time. Pro-calcitonin was elevated at 0.22. Blood cultures were collected. His home medication include aspirin 81 mg by mouth daily, Lipitor 40 mg by mouth daily, lispro on a sliding scale, Lantus 10 units at bedtime, Keppra 250 mg by mouth twice a day, lisinopril 10 mg by mouth once a day, Lyrica 150 mg by mouth twice a day, nifedipine 30 mg by mouth once a day, [place] 51 tab by mouth every 8 hours as needed for pain, omeprazole 20 mg by mouth daily, sertraline 100 mg by mouth daily. 06/04/2019: Patient was seen and examined. No acute events overnight. Discussed with nursing, confirms positive COVID result from outside hospital. Patient reports slightly worse breathing than yesterday. He denies any chest pain or palpitations. No nausea or vomiting. No fever or chills. 06/05/2019: Patient examined at the bedside this morning. Patient is on 2L NC. Oxygen saturations greater than 92%. He currently denies shortness of breath. Reports occasional nonproductive cough. Patient remains febrile. Temperature this morning 100.9F. 06/06/2019: Patient examined at the bedside. He is on 2L NC. Oxygen saturations greater than 92%. Denies shortness of breath or cough. Patient was febrile overnight with a temperature of 100.7F. Most recent temperature is 98.3. Urine cultures positive for gram-negative bacilli. He remains on antibiotics. PHYSICAL EXAM: VITAL SIGNS: Reviewed GENERAL: Well-developed in no acute distress HEENT: No sclera icterus. Extraocular movements grossly intact. Moist buccal mucosa. Head is atraumatic, normocephalic. Hears conversational speech. No nasal drainage. NECK: Supple without lymphadenopathy. CHEST: Lung sounds coarse. Equal bilateral excursions. CARDIOVASCULAR: Regular rate with regular rhythm. Palpable pulses. ABDOMEN: Soft. Nondistended. Nontender. MUSCULOSKELETAL: No clubbing or cyanosis. Right BKA noted. NEUROLOGIC: No focal or lateralizing signs. Cranial nerves II through XII grossly intact. PSYCH: Appropriate affect. Alert and oriented to person, place and time. SKIN: Well perfused. Good skin turgor. ASSESSMENT AND PLAN: 1. Covid19 pneumonia with sepsis, possible superimposed bacterial pneumonia -Supportive care -Continue doxycycline and Rocephin -Continue Plaquenil and zinc -Continue contact and droplet isolation precautions -Continue to monitor labs -Infectious disease following -Wean off oxygen as tolerated 2. Elevated troponins, likely demand ischemia from above process -ACS ruled out -Echo reveals ejection fraction 55-60% -Continue telemetry monitoring 3. Abnormal urinalysis -UA positive leukocyte esterase -Continue Rocephin -Urine culture positive for gram-negative bacilli. Await final results. 4. History of CVA -Continue aspirin and Lipitor 5. Diabetes mellitus -Continue Accu-checks -NovoLog sliding scale 6. History of seizures -Continue Keppra 7. History of hypertension -Continue current anti-hypertensive -Monitor blood pressure DVT prophylaxis: Heparin subcu Discussed with: Nursing, patient Anticipated discharge: Anticipate discharge tomorrow Anticipated discharge place: Return to [facility] Nurse practitioner note has been reviewed by physician. Signing provider agrees with the documented findings, assessment, and plan of care. Objective - Vital Signs Vital signs: Vital Signs Temp 98.3 F 06/06/19 11:29 Pulse 90 04/09/20 11:29 Resp 18 06/06/19 11:29 BP 133/74 06/06/19 11:29 Pulse Ox 91 L 06/06/19 11:29 Intake & Output 06/05/19 06/06/19 06/06/19 18:59 06:59 18:59 Intake Total 1014 118 Output Total 400 Balance 1014 -400 118 Intake: IV 600 Sodium Chloride 0.9% 1, 600 000 ml @ 75 mls/hr IV . [id number] [facility] Rx#:[id number] Oral 414 118 Output: Urine 400 Other: Voiding Method Diaper Diaper Diaper # Voids 1 3 1 - Labs CBC & Chem 7: 06/06/19 07:46 06/06/19 07:46 Labs: Abnormal Lab Results - Last 24 Hours (Table) 06/05/19 06/05/19 06/06/19 Range/Units 16:57 21:04 02:31 WBC (3.8-10.6) k/uL RBC (4.30-5.90) m/uL Hgb (13.0-17.5) gm/dL Hct (39.0-53.0) % MCHC (31.0-37.0) g/dL Plt Count (150-450) k/uL Lymphocytes # (1.0-4.8) k/uL D-Dimer (<0.60) mg/L FEU Chloride (98-107) mmol/L Carbon Dioxide (22-30) mmol/L Glucose (74-99) mg/dL POC Glucose (mg/dL) 151 H 193 H 148 H (75-99) mg/dL Calcium (8.4-10.2) mg/dL C-Reactive Protein (<10.0) mg/L Albumin (3.5-5.0) g/dL 06/06/19 06/06/19 06/06/19 Range/Units 06:56 07:46 07:46 WBC 3.3 L (3.8-10.6) k/uL RBC 3.63 L (4.30-5.90) m/uL Hgb 9.3 L (13.0-17.5) gm/dL Hct 30.2 L (39.0-53.0) % MCHC 30.7 L (31.0-37.0) g/dL Plt Count 140 L (150-450) k/uL Lymphocytes # 0.9 L (1.0-4.8) k/uL D-Dimer (<0.60) mg/L FEU Chloride 112 H (98-107) mmol/L Carbon Dioxide 20 L (22-30) mmol/L Glucose 124 H (74-99) mg/dL POC Glucose (mg/dL) 143 H (75-99) mg/dL Calcium 7.7 L (8.4-10.2) mg/dL C-Reactive Protein 42.0 H (<10.0) mg/L Albumin 2.8 L (3.5-5.0) g/dL 06/06/19 06/06/19 Range/Units 07:46 11:14 WBC (3.8-10.6) k/uL RBC (4.30-5.90) m/uL Hgb (13.0-17.5) gm/dL Hct (39.0-53.0) % MCHC (31.0-37.0) g/dL Plt Count (150-450) k/uL Lymphocytes # (1.0-4.8) k/uL D-Dimer 1.11 H (<0.60) mg/L FEU Chloride (98-107) mmol/L Carbon Dioxide (22-30) mmol/L Glucose (74-99) mg/dL POC Glucose (mg/dL) 146 H (75-99) mg/dL Calcium (8.4-10.2) mg/dL C-Reactive Protein (<10.0) mg/L Albumin (3.5-5.0) g/dL Microbiology - Last 24 Hours (Table) 06/04/19 15:15 Urine Culture - Preliminary Urine,Voided Gram Neg Bacilli <Michael Perdomo - Last Filed: 06/06/19 17:21> Objective - Vital Signs Vital signs: Vital Signs Temp 98.6 F 06/06/19 14:56 Pulse 100 06/06/19 14:56 Resp 18 06/06/19 14:57 BP 148/77 06/06/19 14:56 Pulse Ox 93 L 06/06/19 14:57 Intake & Output 06/05/19 06/06/19 06/06/19 18:59 06:59 18:59 Intake Total 1014 298 Output Total 400 400 Balance 1014 -400 -102 Intake: IV 600 Sodium Chloride 0.9% 1, 600 000 ml @ 75 mls/hr IV . [id number] [facility] Rx#:[id number] Oral 414 298 Output: Urine 400 400 Other: Voiding Method Diaper Diaper Diaper # Voids 1 3 1 - Labs CBC & Chem 7: 06/06/19 07:46 06/06/19 07:46 Labs: Abnormal Lab Results - Last 24 Hours (Table) 06/05/19 06/06/19 06/06/19 Range/Units 21:04 02:31 06:56 WBC (3.8-10.6) k/uL RBC (4.30-5.90) m/uL Hgb (13.0-17.5) gm/dL Hct (39.0-53.0) % MCHC (31.0-37.0) g/dL Plt Count (150-450) k/uL Lymphocytes # (1.0-4.8) k/uL D-Dimer (<0.60) mg/L FEU Chloride (98-107) mmol/L Carbon Dioxide (22-30) mmol/L Glucose (74-99) mg/dL POC Glucose (mg/dL) 193 H 148 H 143 H (75-99) mg/dL Calcium (8.4-10.2) mg/dL C-Reactive Protein (<10.0) mg/L Albumin (3.5-5.0) g/dL 06/06/19 06/06/19 06/06/19 Range/Units 07:46 07:46 07:46 WBC 3.3 L (3.8-10.6) k/uL RBC 3.63 L (4.30-5.90) m/uL Hgb 9.3 L (13.0-17.5) gm/dL Hct 30.2 L (39.0-53.0) % MCHC 30.7 L (31.0-37.0) g/dL Plt Count 140 L (150-450) k/uL Lymphocytes # 0.9 L (1.0-4.8) k/uL D-Dimer 1.11 H (<0.60) mg/L FEU Chloride 112 H (98-107) mmol/L Carbon Dioxide 20 L (22-30) mmol/L Glucose 124 H (74-99) mg/dL POC Glucose (mg/dL) (75-99) mg/dL Calcium 7.7 L (8.4-10.2) mg/dL C-Reactive Protein 42.0 H (<10.0) mg/L Albumin 2.8 L (3.5-5.0) g/dL 06/06/19 06/06/19 Range/Units 11:14 16:26 WBC (3.8-10.6) k/uL RBC (4.30-5.90) m/uL Hgb (13.0-17.5) gm/dL Hct (39.0-53.0) % MCHC (31.0-37.0) g/dL Plt Count (150-450) k/uL Lymphocytes # (1.0-4.8) k/uL D-Dimer (<0.60) mg/L FEU Chloride (98-107) mmol/L Carbon Dioxide (22-30) mmol/L Glucose (74-99) mg/dL POC Glucose (mg/dL) 146 H 115 H (75-99) mg/dL Calcium (8.4-10.2) mg/dL C-Reactive Protein (<10.0) mg/L Albumin (3.5-5.0) g/dL Microbiology - Last 24 Hours (Table) 06/04/19 15:15 Urine Culture - Preliminary Urine,Voided Gram Neg Bacilli Assessment and Plan Assessment: I saw and evaluated the patient and discussed the care with [Jaja Souza ], WALT on [06/06/2019 ]. I agree with the subjective, assessment and plan as documented in the note above. Continue Rocephin for UTI along with doxycycline for concerns of community pneumonia, awaiting final urine cultures. Continue hydroxychloroquine. Tmax 100.7 overnight. Infectious disease following. He continues to be on 2 L nasal cannula will need to be weaned off. Potential discharge in 1-2 days. Physical exam: General: [Non toxic],[Ill appearing], [No distress] Skin: [warm], [dry] Lungs: [chest rise symmetrical], [no accessory muscle use], [no conversational dyspnea] Cardiovascular: [ + dorsal pedis pulse bilateral], [capillary refill<2 seconds, [no lower extremity edema], [R BKA] No movement of the right upper extremity from a CVA in the past, present on admission.
[2019-06-06 15:48] LABS: Ferritin 223.4 ng/mL (22.0-322.0)
[2019-06-06 16:27] LABS: Glucose,Whole Blood 115 mg/dL (75-99)
[2019-06-06 20:35] LABS: Glucose,Whole Blood 134 mg/dL (75-99)
--- NOTE | 2019-06-06 23:55 | PN ---
PROGRESS NOTE DATE OF SERVICE: 06/06/2019 REASON FOR FOLLOWUP: Acute COVID-19 pneumonia. INTERVAL HISTORY: The patient is currently afebrile, has been breathing comfortably. Denies having any chest pain or shortness of breath. Minimal cough. No abdominal pain or diarrhea. PHYSICAL EXAMINATION: Blood pressure 154/80 with a pulse of 100, temperature 98.1. He is 94% on 2 L nasal cannula. General description is an elderly male lying in bed in no distress. RESPIRATORY SYSTEM: Unlabored breathing with decreased intensity of breath sounds. No wheeze. HEART: S1, S2. Regular rate and rhythm. ABDOMEN: Soft. No tenderness. LABS: Hemoglobin is 9.3, white count 3.3, BUN of 20, creatinine 0.72. DIAGNOSTIC IMPRESSION AND PLAN: 1. Patient with acute COVID-19 pneumonia. Patient clinically responding to the Plaquenil and zinc therapy. 2. Patient with Klebsiella urinary tract infection, covered with Rocephin. Continue supportive care. MMODL / IJN: [id number] /
[2019-06-07 02:03] LABS: Glucose,Whole Blood 127 mg/dL (75-99)
[2019-06-07 06:51] LABS: Basophils % (A) 0 %; Eosinophils % (A) 0 %; HCT 31.2 % (39.0-53.0); HGB 9.6 gm/dL (13.0-17.5); Lymphocytes # (A) 0.8 k/uL (1.0-4.8); Lymphocytes % (A) 21 %; MCH 25.4 pg (25.0-35.0); MCV 82.1 fL (80.0-100.0); Mean Platelet Volume 8.3; Monocytes # (A) 0.3 k/uL (0-1.0); Monocytes % (A) 9 %; Neutrophils # (A) 2.6 k/uL (1.3-7.7); Neutrophils % (A) 68 %; Platelet Count 140 k/uL (150-450); RBC 3.79 m/uL (4.30-5.90); RDW 15.3 % (11.5-15.5); WBC 3.8 k/uL (3.8-10.6)
[2019-06-07 06:54] LABS: Glucose,Whole Blood 104 mg/dL (75-99)
[2019-06-07 06:57] LABS: ALT 14 U/L (4-49); AST 21 U/L (17-59); African American GFR (CKD) >90 (>60 ml/min/1.73 sqM); Alkaline Phosphatase 81 U/L (38-126); Anion Gap 10 mmol/L; Blood Urea Nitrogen 11 mg/dL (9-20); Calcium 8.1 mg/dL (8.4-10.2); Carbon Dioxide 20 mmol/L (22-30); Chloride 110 mmol/L (98-107); Glucose 110 mg/dL (74-99); LDH 483 U/L (313-618); Non-African American GFR(CKD) >90 (>60 ml/min/1.73 sqM); Potassium 4.2 mmol/L (3.5-5.1); Sodium 140 mmol/L (137-145); Total Bilirubin 0.3 mg/dL (0.2-1.3); Total Protein 6.7 g/dL (6.3-8.2)
[2019-06-07 07:06] LABS: D-Dimer 1.07 mg/L FEU (<0.60); Prothrombin Time 10.4 sec (9.0-12.0)
[2019-06-07] MEDS: INSULIN ASPART (NovoLOG) 100 UNIT/ML VIAL SQ SCH ×3 (07:35→17:18)
[2019-06-07] MEDS: ATORVASTATIN 40 MG TAB PO SCH (07:38)
[2019-06-07] MEDS: SERTRALINE 100 MG TAB PO SCH (07:39)
[2019-06-07] MEDS: PREGABALIN 75 MG CAP PO SCH ×2 (07:39→20:23)
[2019-06-07] MEDS: LISINOPRIL 10 MG TAB PO SCH (07:39)
[2019-06-07] MEDS: ASPIRIN 81 MG PO SCH (07:39)
[2019-06-07] MEDS: DOXYCYCLINE 100 MG CAP PO SCH ×2 (07:40→20:22)
[2019-06-07] MEDS: HEPARIN SODIUM,PORCINE 5,000 UNIT/ML 1 ML VIAL SQ SCH ×3 (07:40→20:29)
[2019-06-07] MEDS: NIFEdipine XL 30 MG TAB.ER.24 PO SCH (07:40)
[2019-06-07] MEDS: HYDROXYCHLOROQUINE SULFATE 200 MG TAB PO SCH ×2 (07:40→20:23)
[2019-06-07] MEDS: levETIRAcetam 250 MG TAB PO SCH (07:41)
[2019-06-07] MEDS: ZINC SULFATE 220 MG CAP PO SCH (07:41)
[2019-06-07 07:53] LABS: C Reactive Protein 43.8 mg/L (<10.0)
[2019-06-07] MEDS: SODIUM CHLORIDE 0.9% 1,000 ML IV SCH ×2 (08:37→20:00)
--- NOTE | 2019-06-07 10:02 | P.PN ---
<Dalia Souza - Last Filed: 06/07/19 09:51> Subjective Progress Note Date: 06/07/19 CHIEF COMPLAINT: Covid 19 HISTORY OF PRESENT ILLNESS: 69-year-old male with PMH of CVA with right-sided weakness, history of seizures, diabetes mellitus, hypertension presents to the ED for shortness of breath. Patient states that the symptoms of been ongoing for the past 2 weeks. He complains of cough and inability to bring up sputum. Symptoms continue to worsen which prompted the patient to come to the ED. He denies any chest pain, palpitations, nausea or vomiting, fever or chills, changes in urination or bowel habits. No changes in appetite or weight. EKG showed sinus tachycardia with heart rate 103, T-wave abnormalities. Patient was noted to have a T-max of 102.8 Fahrenheit, BP as low as 93/44. He was given 2.5 L bolus. He was given Tylenol 650 mg by mouth. CBC showed hemoglobin of 10.5, hematocrit 35%. BUN was 35. Magnesium was 2. Albumin was 3.3. Troponin was 0.18, 0.19. CRP was 54.7. Lactic acid was negative. Urinalysis showed moderate leukocyte esterase. Chest x-ray showed mild bibasilar airspace disease. Patient was tested for COVID at that time. Pro-calcitonin was elevated at 0.22. Blood cultures were collected. His home medication include aspirin 81 mg by mouth daily, Lipitor 40 mg by mouth daily, lispro on a sliding scale, Lantus 10 units at bedtime, Keppra 250 mg by mouth twice a day, lisinopril 10 mg by mouth once a day, Lyrica 150 mg by mouth twice a day, nifedipine 30 mg by mouth once a day, [place] 51 tab by mouth every 8 hours as needed for pain, omeprazole 20 mg by mouth daily, sertraline 100 mg by mouth daily. 06/04/2019: Patient was seen and examined. No acute events overnight. Discussed with nursing, confirms positive COVID result from outside hospital. Patient reports slightly worse breathing than yesterday. He denies any chest pain or palpitations. No nausea or vomiting. No fever or chills. 06/05/2019: Patient examined at the bedside this morning. Patient is on 2L NC. Oxygen saturations greater than 92%. He currently denies shortness of breath. Reports occasional nonproductive cough. Patient remains febrile. Temperature this morning 100.9F. 06/06/2019: Patient examined at the bedside. He is on 2L NC. Oxygen saturations greater than 92%. Denies shortness of breath or cough. Patient was febrile overnight with a temperature of 100.7F. Most recent temperature is 98.3. Urine cultures positive for gram-negative bacilli. He remains on antibiotics. 06/07/2019: Patient examined at the bedside. He is on 2L NC. Oxygen saturations greater than 92%. Denies shortness of breath or cough. He is afebrile. Slightly tachycardic. PHYSICAL EXAM: VITAL SIGNS: Reviewed GENERAL: Well-developed in no acute distress HEENT: No sclera icterus. Extraocular movements grossly intact. Moist buccal mucosa. Head is atraumatic, normocephalic. Hears conversational speech. No nasal drainage. NECK: Supple without lymphadenopathy. CHEST: Lung sounds coarse. Equal bilateral excursions. CARDIOVASCULAR: Regular rate with regular rhythm. Palpable pulses. ABDOMEN: Soft. Nondistended. Nontender. MUSCULOSKELETAL: No clubbing or cyanosis. Right BKA noted. NEUROLOGIC: No focal or lateralizing signs. Cranial nerves II through XII grossly intact. PSYCH: Appropriate affect. Alert and oriented to person, place and time. SKIN: Well perfused. Good skin turgor. ASSESSMENT AND PLAN: 1. Covid19 pneumonia with sepsis, possible superimposed bacterial pneumonia -Supportive care -Check pro-calcitonin level. If within normal limits may discontinue doxycycline. -Continue Plaquenil and zinc -Continue contact and droplet isolation precautions -Continue to monitor labs -Infectious disease following -Wean off oxygen as tolerated 2. Elevated troponins, likely demand ischemia from above process -ACS ruled out -Echo reveals ejection fraction 55-60% -Continue telemetry monitoring 3. Urinary tract infection -Continue Rocephin -Urine culture positive for Klebsiella pneumoniae 4. History of CVA -Continue aspirin and Lipitor 5. Diabetes mellitus -Continue Accu-checks -NovoLog sliding scale 6. History of seizures -Continue Keppra 7. History of hypertension -Continue current anti-hypertensive -Monitor blood pressure DVT prophylaxis: Heparin subcu Discussed with: Nursing, patient Anticipated discharge: Anticipate discharge tomorrow. [facility] [place] requiring patient to be afebrile for 48 hours without the use of Tylenol Anticipated discharge place: Return to [facility] [place] Nurse practitioner note has been reviewed by physician. Signing provider agrees with the documented findings, assessment, and plan of care. Objective - Vital Signs Vital signs: Vital Signs Temp 98.8 F 06/07/19 07:17 Pulse 101 H 06/07/19 07:17 Resp 18 06/07/19 08:00 BP 166/84 06/07/19 07:17 Pulse Ox 93 L 06/07/19 07:17 Intake & Output 06/06/19 06/07/19 06/07/19 18:59 06:59 18:59 Intake Total 298 118 Output Total 800 200 400 Balance -502 -200 -282 Intake: Oral 298 118 Output: Urine 800 200 400 Other: Voiding Method Diaper Diaper Diaper # Voids 1 1 # Bowel Movements 1 - Labs CBC & Chem 7: 06/07/19 05:18 06/07/19 05:18 Labs: Abnormal Lab Results - Last 24 Hours (Table) 06/06/19 06/06/19 06/06/19 Range/Units 11:14 16:26 20:31 RBC (4.30-5.90) m/uL Hgb (13.0-17.5) gm/dL Hct (39.0-53.0) % Plt Count (150-450) k/uL Lymphocytes # (1.0-4.8) k/uL D-Dimer (<0.60) mg/L FEU Chloride (98-107) mmol/L Carbon Dioxide (22-30) mmol/L Creatinine (0.66-1.25) mg/dL Glucose (74-99) mg/dL POC Glucose (mg/dL) 146 H 115 H 134 H (75-99) mg/dL Calcium (8.4-10.2) mg/dL C-Reactive Protein (<10.0) mg/L Albumin (3.5-5.0) g/dL 06/07/19 06/07/19 06/07/19 Range/Units 01:47 05:18 05:18 RBC 3.79 L (4.30-5.90) m/uL Hgb 9.6 L (13.0-17.5) gm/dL Hct 31.2 L (39.0-53.0) % Plt Count 140 L (150-450) k/uL Lymphocytes # 0.8 L (1.0-4.8) k/uL D-Dimer (<0.60) mg/L FEU Chloride 110 H (98-107) mmol/L Carbon Dioxide 20 L (22-30) mmol/L Creatinine 0.60 L (0.66-1.25) mg/dL Glucose 110 H (74-99) mg/dL POC Glucose (mg/dL) 127 H (75-99) mg/dL Calcium 8.1 L (8.4-10.2) mg/dL C-Reactive Protein 43.8 H (<10.0) mg/L Albumin 3.0 L (3.5-5.0) g/dL 06/07/19 06/07/19 Range/Units 05:18 06:52 RBC (4.30-5.90) m/uL Hgb (13.0-17.5) gm/dL Hct (39.0-53.0) % Plt Count (150-450) k/uL Lymphocytes # (1.0-4.8) k/uL D-Dimer 1.07 H (<0.60) mg/L FEU Chloride (98-107) mmol/L Carbon Dioxide (22-30) mmol/L Creatinine (0.66-1.25) mg/dL Glucose (74-99) mg/dL POC Glucose (mg/dL) 104 H (75-99) mg/dL Calcium (8.4-10.2) mg/dL C-Reactive Protein (<10.0) mg/L Albumin (3.5-5.0) g/dL Microbiology - Last 24 Hours (Table) 06/04/19 15:15 Urine Culture - Final Urine,Voided Klebsiella pneumoniae <Michael Perdomo - Last Filed: 06/07/19 16:27> Objective - Vital Signs Vital signs: Vital Signs Temp 98.8 F 06/07/19 15:00 Pulse 101 H 06/07/19 15:00 Resp 18 06/07/19 15:00 BP 159/78 06/07/19 15:00 Pulse Ox 92 L 06/07/19 15:00 Intake & Output 06/06/19 06/07/19 06/07/19 18:59 06:59 18:59 Intake Total 298 118 Output Total 800 200 800 Balance -468 -200 -456 Intake: Oral 298 118 Output: Urine 800 200 800 Other: Voiding Method Diaper Diaper Diaper # Voids 1 1 # Bowel Movements 1 - Labs CBC & Chem 7: 06/07/19 05:18 06/07/19 05:18 Labs: Abnormal Lab Results - Last 24 Hours (Table) 06/06/19 06/06/19 06/07/19 Range/Units 16:26 20:31 01:47 RBC (4.30-5.90) m/uL Hgb (13.0-17.5) gm/dL Hct (39.0-53.0) % Plt Count (150-450) k/uL Lymphocytes # (1.0-4.8) k/uL D-Dimer (<0.60) mg/L FEU Chloride (98-107) mmol/L Carbon Dioxide (22-30) mmol/L Creatinine (0.66-1.25) mg/dL Glucose (74-99) mg/dL POC Glucose (mg/dL) 115 H 134 H 127 H (75-99) mg/dL Calcium (8.4-10.2) mg/dL C-Reactive Protein (<10.0) mg/L Albumin (3.5-5.0) g/dL 06/07/19 06/07/19 06/07/19 Range/Units 05:18 05:18 05:18 RBC 3.79 L (4.30-5.90) m/uL Hgb 9.6 L (13.0-17.5) gm/dL Hct 31.2 L (39.0-53.0) % Plt Count 140 L (150-450) k/uL Lymphocytes # 0.8 L (1.0-4.8) k/uL D-Dimer 1.07 H (<0.60) mg/L FEU Chloride 110 H (98-107) mmol/L Carbon Dioxide 20 L (22-30) mmol/L Creatinine 0.60 L (0.66-1.25) mg/dL Glucose 110 H (74-99) mg/dL POC Glucose (mg/dL) (75-99) mg/dL Calcium 8.1 L (8.4-10.2) mg/dL C-Reactive Protein 43.8 H (<10.0) mg/L Albumin 3.0 L (3.5-5.0) g/dL 06/07/19 06/07/19 Range/Units 06:52 11:52 RBC (4.30-5.90) m/uL Hgb (13.0-17.5) gm/dL Hct (39.0-53.0) % Plt Count (150-450) k/uL Lymphocytes # (1.0-4.8) k/uL D-Dimer (<0.60) mg/L FEU Chloride (98-107) mmol/L Carbon Dioxide (22-30) mmol/L Creatinine (0.66-1.25) mg/dL Glucose (74-99) mg/dL POC Glucose (mg/dL) 104 H 137 H (75-99) mg/dL Calcium (8.4-10.2) mg/dL C-Reactive Protein (<10.0) mg/L Albumin (3.5-5.0) g/dL Microbiology - Last 24 Hours (Table) 06/04/19 15:15 Urine Culture - Final Urine,Voided Klebsiella pneumoniae Assessment and Plan Assessment: I saw and evaluated the patient and discussed the care with [Jaja Souza ], [place] on [06/07/2019 ]. I agree with the subjective, assessment and plan as documented in the note above. Continue Rocephin for UTI (sensitive). Continue hydroxychloroquine. Tmax 100.7 06/05, needs 48H afebrile in order to return to residence. Infectious disease following. He continues to be on 2 L nasal cannula will need to be weaned off. Patient appears altered today, unable to follow simple commands, CT brain ordered along with Neurology consult. Physical exam: General: [Non toxic],[Ill appearing], [No distress] Skin: [warm], [dry] Lungs: [chest rise symmetrical], [no accessory muscle use], [no conversational dyspnea] Cardiovascular: [ + dorsal pedis pulse bilateral], [capillary refill<2 seconds, [no lower extremity edema], [R BKA] No movement of the right upper extremity from a CVA in the past, present on admission. Neuro: [Alert and oriented x 1]
[2019-06-07 11:53] LABS: Glucose,Whole Blood 137 mg/dL (75-99)
--- NOTE | 2019-06-07 13:59 | CT ---
EXAMINATION TYPE: CT brain wo con DATE OF EXAM: 06/07/2019 COMPARISON: None HISTORY: altered mental status CT DLP: 1099.4 mGycm Automated exposure control for dose reduction was used. TECHNIQUE: CT scan of the head is performed without contrast. FINDINGS: There is no acute intracranial hemorrhage or midline shift identified. There is diffuse v entricular and sulcal prominence consistent with diffuse age-related cerebral atrophy. Vague left erika ticular basal ganglia benign dystrophic calcifications 17. There is low-attenuation in the periventri cular white matter most commonly on the basis of chronic microangiopathy. The globes are intact and the visualized sinuses are clear. Atherosclerosis is seen of the intracranial vasculature. Incident ally noted partially empty sella turcica. Falcine calcifications and dural calcifications are evident . IMPRESSION: No acute intracranial hemorrhage or midline shift. Diffuse age-related cerebral atrophy and moderate burden nonspecific white matter change, most commonly on the basis of chronic microangio danni.
[2019-06-07 15:30] LABS: Ferritin 221.2 ng/mL (22.0-322.0)
[2019-06-07 17:13] LABS: Glucose,Whole Blood 128 mg/dL (75-99)
--- NOTE | 2019-06-07 19:07 | P.CNNES ---
History of Present Illness Consult date: 06/07/19 Requesting physician: Michael Perdomo Reason for Consult: Altered mental status, new mental status changes History of Present Illness: Patient is a 69-year-old male admitted to the hospital with acute COVID-19 pneumonia, who has received treatment with zinc and Plaquenil. Patient also has UTI with Klebsiella for which he has been on Rocephin. Patient has history of stroke with right hemiparesis in the past. Patient baseline mental functioning is orientation of 2-3. Patient apparently today at around 11 AM to noon, become acutely confused, and was noted to be staring off in space, unresponsive, not following commands. No seizure activity was noted at that time. Patient underwent CT head showed no acute intracranial hemorrhage or midline shift. Diffuse age-related cerebral atrophy and moderate burden nonspecific white matter change, most likely on the basis of chronic microangiopathy. 2-D echo from 06/04/2019 showed mild concentric LVH, EF 55-60%. Normal left atrial size. Mild mitral regurgitation. Patient's blood test shows WBC 3.8 hemoglobin 9.6, platelets 140. PT/PTT normal. Electrolytes normal, renal functions normal. Patient has history of CVA with right-sided weakness, history of seizures, diabetes hypertension. Patient has been on aspirin 81 mg, Lipitor 40 mg Keppra 250 mg twice a day, Lyrica 150 mg twice a day besides lisinopril Lantus, nifedipine [place] and omeprazole and sertraline 100 mg. Review of Systems ROS unobtainable: due to mental status Past Medical History Past Medical History: Diabetes Mellitus, Deep Vein Thrombosis (DVT) Additional Past Medical History / Comment(s): muscle weakness, urinary incontinence, hemiplegia, right bka, History of Any Multi-Drug Resistant Organisms: Unobtainable Smoking Status: Former smoker - Past Family History Father History Unknown: Yes Medications and Allergies Home Medications Medication Instructions Recorded Confirmed Type Acetaminophen Tab [Tylenol] 650 mg PO Q6H PRN 06/03/19 06/03/19 History Ascorbic Acid [Vitamin C] 500 mg PO DAILY 06/03/19 06/03/19 History Aspirin EC [Ecotrin Low Dose] 81 mg PO DAILY 06/03/19 06/03/19 History Atorvastatin Calcium [Lipitor] 40 mg PO DAILY 06/03/19 06/03/19 History HYDROcodone/APAP 5-325MG [[place] 1 tab PO Q8H PRN 06/03/19 06/03/19 History 5-325] Hydrocerin Cream 1 applic TOPICAL Q12H PRN 06/03/19 06/03/19 History INSULIN LISPRO (HumaLOG) [humaLOG] See Protocol SQ ACHS 06/03/19 06/03/19 History Insulin Glargine,Hum.rec.anlog 10 unit SQ HS 06/03/19 06/03/19 History [Lantus Solostar] Lisinopril [Zestril] 10 mg PO DAILY 06/03/19 06/03/19 History Magnesium Oxide [Magox 400] 400 mg PO DAILY 06/03/19 06/03/19 History Methocarbamol [Robaxin] 750 mg PO BID 06/03/19 06/03/19 History Multivitamins, Thera [Multivitamin 1 tab PO DAILY 06/03/19 06/03/19 History (formulary)] NIFEdipine [NIFEdipine ER] 30 mg PO DAILY 06/03/19 06/03/19 History Omeprazole 20 mg PO DAILY 06/03/19 06/03/19 History Pregabalin [Lyrica] 150 mg PO BID 06/03/19 06/03/19 History Sertraline [Zoloft] 100 mg PO DAILY 06/03/19 06/03/19 History levETIRAcetam 250 mg PO BID 06/03/19 06/03/19 History Allergies Allergy/AdvReac Type Severity Reaction Status Date / Time No Known Allergies Allergy Verified 06/03/19 18:54 Physical Examination - Vital Signs Vital Signs: Vital Signs Temp Pulse Resp BP Pulse Ox 06/07/19 10:54 98.7 F 105 H 18 183/94 98 06/07/19 08:00 18 06/07/19 07:17 98.8 F 101 H 18 166/84 93 L 06/07/19 03:22 14 06/07/19 02:44 99.1 F 98 14 132/77 96 06/07/19 00:16 14 06/06/19 22:51 99.0 F 100 14 152/79 94 L 06/06/19 20:00 14 06/06/19 19:15 99.1 F 100 14 154/80 94 L Intake and Output 06/07/19 06/07/19 06/07/19 06:59 14:59 22:59 Intake Total 118 Output Total 400 Balance -282 Intake: Oral 118 Output: Urine 400 Other: Voiding Method Diaper Diaper # Voids 1 # Bowel Movements 1 On examination patient is awake, but has very slow mentation, hard of hearing. Patient is oriented 1. Only knows his name. Could not tell what building he is in, or month or year. States he is in [place]. Speech is clear with no obvious aphasia or dysarthria. Pupils are round and reactive to light. Visual peacock could not be tested reliably. Face is symmetric. Patient is spastic in the right arm. Patient has amputation of right below-knee amputation. Patient has normal strength in the left side in the left arm and left leg. Patient has chronic venous changes in his legs. Cerebellar functions could not be tested reliably. Results - Laboratory Findings CBC and BMP: 06/07/19 05:18 06/07/19 05:18 Abnormal Lab Findings: Abnormal Labs 06/03/19 06/03/19 06/03/19 20:29 20:40 20:40 WBC RBC Hgb 11.5 L Hct 37.6 L MCHC 30.7 L RDW Plt Count 132 L Lymphocytes # 0.9 L D-Dimer Chloride Carbon Dioxide 20 L BUN 40 H Creatinine Glucose 269 H POC Glucose (mg/dL) 277 H Calcium 8.0 L Lactate Dehydrogenase C-Reactive Protein Albumin Urine Protein Urine Blood Ur Leukocyte Esterase Urine RBC Urine WBC Urine WBC Clumps Amorphous Sediment Urine Bacteria Hyaline Casts Urine Mucus 06/04/19 06/04/19 06/04/19 02:03 07:03 08:53 WBC RBC 3.93 L Hgb 10.1 L Hct 33.2 L MCHC 30.4 L RDW 15.6 H Plt Count 136 L Lymphocytes # 0.8 L D-Dimer Chloride Carbon Dioxide BUN Creatinine Glucose POC Glucose (mg/dL) 200 H 170 H Calcium Lactate Dehydrogenase C-Reactive Protein Albumin Urine Protein Urine Blood Ur Leukocyte Esterase Urine RBC Urine WBC Urine WBC Clumps Amorphous Sediment Urine Bacteria Hyaline Casts Urine Mucus 06/04/19 06/04/19 06/04/19 08:53 11:42 15:15 WBC RBC Hgb Hct MCHC RDW Plt Count Lymphocytes # D-Dimer Chloride 108 H Carbon Dioxide BUN 32 H Creatinine Glucose 171 H POC Glucose (mg/dL) 141 H Calcium 7.7 L Lactate Dehydrogenase 754 H C-Reactive Protein 57.4 H Albumin 3.3 L Urine Protein 2+ H Urine Blood Small H Ur Leukocyte Esterase Large H Urine RBC 7 H Urine WBC 107 H Urine WBC Clumps Many H Amorphous Sediment Rare H Urine Bacteria Many H Hyaline Casts 15 H Urine Mucus Rare H 06/04/19 06/04/19 06/05/19 17:00 21:11 02:23 WBC RBC Hgb Hct MCHC RDW Plt Count Lymphocytes # D-Dimer Chloride Carbon Dioxide BUN Creatinine Glucose POC Glucose (mg/dL) 140 H 130 H 110 H Calcium Lactate Dehydrogenase C-Reactive Protein Albumin Urine Protein Urine Blood Ur Leukocyte Esterase Urine RBC Urine WBC Urine WBC Clumps Amorphous Sediment Urine Bacteria Hyaline Casts Urine Mucus 06/05/19 06/05/19 06/05/19 07:13 10:48 16:57 WBC RBC Hgb Hct MCHC RDW Plt Count Lymphocytes # D-Dimer Chloride Carbon Dioxide BUN Creatinine Glucose POC Glucose (mg/dL) 142 H 100 H 151 H Calcium Lactate Dehydrogenase C-Reactive Protein Albumin Urine Protein Urine Blood Ur Leukocyte Esterase Urine RBC Urine WBC Urine WBC Clumps Amorphous Sediment Urine Bacteria Hyaline Casts Urine Mucus 06/05/19 06/06/19 06/06/19 21:04 02:31 06:56 WBC RBC Hgb Hct MCHC RDW Plt Count Lymphocytes # D-Dimer Chloride Carbon Dioxide BUN Creatinine Glucose POC Glucose (mg/dL) 193 H 148 H 143 H Calcium Lactate Dehydrogenase C-Reactive Protein Albumin Urine Protein Urine Blood Ur Leukocyte Esterase Urine RBC Urine WBC Urine WBC Clumps Amorphous Sediment Urine Bacteria Hyaline Casts Urine Mucus 06/06/19 06/06/19 06/06/19 07:46 07:46 07:46 WBC 3.3 L RBC 3.63 L Hgb 9.3 L Hct 30.2 L MCHC 30.7 L RDW Plt Count 140 L Lymphocytes # 0.9 L D-Dimer 1.11 H Chloride 112 H Carbon Dioxide 20 L BUN Creatinine Glucose 124 H POC Glucose (mg/dL) Calcium 7.7 L Lactate Dehydrogenase C-Reactive Protein 42.0 H Albumin 2.8 L Urine Protein Urine Blood Ur Leukocyte Esterase Urine RBC Urine WBC Urine WBC Clumps Amorphous Sediment Urine Bacteria Hyaline Casts Urine Mucus 06/06/19 06/06/19 06/06/19 11:14 16:26 20:31 WBC RBC Hgb Hct MCHC RDW Plt Count Lymphocytes # D-Dimer Chloride Carbon Dioxide BUN Creatinine Glucose POC Glucose (mg/dL) 146 H 115 H 134 H Calcium Lactate Dehydrogenase C-Reactive Protein Albumin Urine Protein Urine Blood Ur Leukocyte Esterase Urine RBC Urine WBC Urine WBC Clumps Amorphous Sediment Urine Bacteria Hyaline Casts Urine Mucus 06/07/19 06/07/19 06/07/19 01:47 05:18 05:18 WBC RBC 3.79 L Hgb 9.6 L Hct 31.2 L MCHC RDW Plt Count 140 L Lymphocytes # 0.8 L D-Dimer Chloride 110 H Carbon Dioxide 20 L BUN Creatinine 0.60 L Glucose 110 H POC Glucose (mg/dL) 127 H Calcium 8.1 L Lactate Dehydrogenase C-Reactive Protein 43.8 H Albumin 3.0 L Urine Protein Urine Blood Ur Leukocyte Esterase Urine RBC Urine WBC Urine WBC Clumps Amorphous Sediment Urine Bacteria Hyaline Casts Urine Mucus 06/07/19 06/07/19 06/07/19 05:18 06:52 11:52 WBC RBC Hgb Hct MCHC RDW Plt Count Lymphocytes # D-Dimer 1.07 H Chloride Carbon Dioxide BUN Creatinine Glucose POC Glucose (mg/dL) 104 H 137 H Calcium Lactate Dehydrogenase C-Reactive Protein Albumin Urine Protein Urine Blood Ur Leukocyte Esterase Urine RBC Urine WBC Urine WBC Clumps Amorphous Sediment Urine Bacteria Hyaline Casts Urine Mucus Assessment and Plan Assessment: * 69-year-old male with history of CVA, right hemiparesis and seizure disorder, admitted with COVID-19 pneumonia. Patient had acute transient mental status change earlier today, suspect breakthrough complex partial seizure. * History of CVA with right hemiparesis * Seizure disorder * Peripheral vascular disease. * Diabetes. Plan: * We will increase Keppra to 500 mg twice a day. * Carotid Doppler to rule out carotid stenosis. * Continue aspirin 81 mg and Lipitor 40 mg. * Neurology coverage not available on the weekend.
--- NOTE | 2019-06-07 20:05 | US ---
EXAMINATION TYPE: US carotid duplex BILAT DATE OF EXAM: 06/07/2019 COMPARISON: NONE CLINICAL HISTORY: Altered mental status, previous CVA. Patient disoriented, unable to obtain history, exam done portable. EXAM MEASUREMENTS: RIGHT: Peak Systolic Velocity (PSV) cm/sec ----- Right CCA: 67.7 ----- Right ICA: 113.4 ----- Right ECA: 85.3 ICA/CCA ratio: 1.7 RIGHT: End Diastole cm/sec ----- Right CCA: 7.3 ----- Right ICA: 13.7 ----- Right ECA: 0.0 LEFT: Peak Systolic Velocity (PSV) cm/sec ----- Left CCA: 75.1 ----- Left ICA: 63.9 ----- Left ECA: 83.0 ICA/CCA ratio: 0.8 LEFT: End Diastole cm/sec ----- Left CCA: 19.9 ----- Left ICA: 14.2 ----- Left ECA: 8.6 VERTEBRALS (direction of flow): Right Vertebral: Antegrade Left Vertebral: Antegrade Rhythm: Normal Difficult and limited study due to patient motion and humming during exam. No elevated velocities, no significant stenosis. IMPRESSION: 1. No flow-limiting stenosis is evident. 2. Exam somewhat difficult and limited. Criteria for Assigning % of Stenosis / Diameter reduction (Estimation based on the indirect measurements of the internal carotid artery velocities (ICA PSV). 1. Normal (no stenosis)=ICA PSV < 125 cm/s: ratio < 2.0: ICA EDV<40 cm/s. 2. Less than 50% stenosis=ICA PSV < 125 cm/s: ratio < 2.0: ICA EDV<40 cm/s. 3. 50 to 69% stenosis=ICA PSV of 125 to 230 cm/s: ration 2.0 ? 4.0: ICA EDV 40-100 cm/s. 4. Greater than 70% stenosis to near occlusion= ICA PSV > 230 cm/s: ratio > 4.0: ICA EDV > 100 cm/s. 5. Near occlusion= ICA PSV velocities may be low or undetectable: variable ratio and ICA EDV. 6. Total occlusion=unable to detect flow.
[2019-06-07] MEDS: levETIRAcetam 500 MG TAB PO SCH (20:22)
[2019-06-07 20:46] LABS: Glucose,Whole Blood 142 mg/dL (75-99)
[2019-06-08 02:24] LABS: Glucose,Whole Blood 144 mg/dL (75-99)
--- NOTE | 2019-06-08 05:43 | PN ---
PROGRESS NOTE DATE OF SERVICE: 06/07/2019 REASON FOR FOLLOWUP: Acute Covid-19 infection. INTERVAL HISTORY: The patient is currently afebrile, has been breathing comfortably. He was noted to be slightly lethargic this morning though the patient was able to answer simple questions. No headache. No abdominal pain or diarrhea. PHYSICAL EXAMINATION: Blood pressure 159/82 with a pulse of 102, temperature 98.8. He is 94% on 2 L nasal cannula. General description is an elderly male lying in bed in no distress. Respiratory system: Unlabored breathing, decreased intensity in breath sounds. No wheeze. Heart S1, S2. Regular rate and rhythm Abdomen soft, no tenderness. LABS: Hemoglobin 9.8, white count 3.8, BUN of 21, creatinine 0.60. DIAGNOSTIC IMPRESSION AND PLAN: 1. Patient with acute Covid-19 infection. The patient is currently on Plaquenil and zinc therapy, to continue. 2. Patient with Klebsiella urinary tract infection, currently covered with Rocephin. Continue supportive care. MMODL / IJN: [id number] /
[2019-06-08] MEDS: INSULIN ASPART (NovoLOG) 100 UNIT/ML VIAL SQ SCH ×3 (07:08→17:17)
[2019-06-08 07:09] LABS: Glucose,Whole Blood 128 mg/dL (75-99)
[2019-06-08] MEDS: HYDROXYCHLOROQUINE SULFATE 200 MG TAB PO SCH ×2 (08:44→11:41)
[2019-06-08] MEDS: SERTRALINE 100 MG TAB PO SCH ×2 (08:44→11:41)
[2019-06-08] MEDS: LISINOPRIL 10 MG TAB PO SCH ×2 (08:44→11:41)
[2019-06-08] MEDS: PREGABALIN 75 MG CAP PO SCH ×3 (08:44→19:58)
[2019-06-08] MEDS: ASPIRIN 81 MG PO SCH ×2 (08:45→11:40)
[2019-06-08] MEDS: ATORVASTATIN 40 MG TAB PO SCH ×2 (08:45→11:40)
[2019-06-08] MEDS: ZINC SULFATE 220 MG CAP PO SCH ×2 (08:45→11:41)
[2019-06-08] MEDS: DOXYCYCLINE 100 MG CAP PO SCH ×3 (08:46→19:58)
[2019-06-08] MEDS: NIFEdipine XL 30 MG TAB.ER.24 PO SCH ×2 (08:46→11:41)
[2019-06-08] MEDS: levETIRAcetam 500 MG TAB PO SCH ×3 (08:46→19:58)
[2019-06-08] MEDS: HEPARIN SODIUM,PORCINE 5,000 UNIT/ML 1 ML VIAL SQ SCH ×3 (08:48→19:58)
[2019-06-08 09:19] LABS: Basophils % (A) 0 %; Eosinophils % (A) 1 %; HCT 30.3 % (39.0-53.0); HGB 9.6 gm/dL (13.0-17.5); Hypochromasia Slight; Lymphocytes # (A) 0.7 k/uL (1.0-4.8); Lymphocytes % (A) 17 %; MCH 25.8 pg (25.0-35.0); MCHC 31.6 g/dL (31.0-37.0); MCV 81.6 fL (80.0-100.0); Monocytes # (A) 0.2 k/uL (0-1.0); Monocytes % (A) 6 %; Neutrophils % (A) 74 %; Platelet Count 166 k/uL (150-450); RBC 3.71 m/uL (4.30-5.90); RDW 14.9 % (11.5-15.5)
[2019-06-08 09:29] LABS: African American GFR (CKD) >90 (>60 ml/min/1.73 sqM); Anion Gap 10 mmol/L; Blood Urea Nitrogen 13 mg/dL (9-20); Calcium 8.4 mg/dL (8.4-10.2); Carbon Dioxide 21 mmol/L (22-30); Chloride 108 mmol/L (98-107); Glucose 139 mg/dL (74-99); Non-African American GFR(CKD) >90 (>60 ml/min/1.73 sqM); Potassium 4.1 mmol/L (3.5-5.1); Sodium 139 mmol/L (137-145)
[2019-06-08] MEDS ORDERED: LORazepam 2 MG/ML INJ IV PRN (10:51)
[2019-06-08 11:44] LABS: Glucose,Whole Blood 153 mg/dL (75-99)
--- NOTE | 2019-06-08 16:14 | P.PN ---
Subjective Progress Note Date: 06/08/19 Principal diagnosis: COVID19, AMS 69-year-old male with PMH of CVA with right-sided weakness, history of seizures, diabetes mellitus, hypertension presents to the ED for shortness of breath. Patient states that the symptoms of been ongoing for the past 2 weeks. He complains of cough and inability to bring up sputum. Symptoms continue to worsen which prompted the patient to come to the ED. He denies any chest pain, palpitations, nausea or vomiting, fever or chills, changes in urination or bowel habits. No changes in appetite or weight. EKG showed sinus tachycardia with heart rate 103, T-wave abnormalities. Patient was noted to have a T-max of 102.8 Fahrenheit, BP as low as 93/44. He was given 2.5 L bolus. He was given Tylenol 650 mg by mouth. CBC showed hemoglobin of 10.5, hematocrit 35%. BUN was 35. Magnesium was 2. Albumin was 3.3. Troponin was 0.18, 0.19. CRP was 54.7. Lactic acid was negative. Urinalysis showed moderate leukocyte esterase. Chest x-ray showed mild bibasilar airspace disease. Patient was tested for COVID at that time. Pro-calcitonin was elevated at 0.22. Blood cultures were collected. His home medication include aspirin 81 mg by mouth daily, Lipitor 40 mg by mouth daily, lispro on a sliding scale, Lantus 10 units at bedtime, Keppra 250 mg by mouth twice a day, lisinopril 10 mg by mouth once a day, Lyrica 150 mg by mouth twice a day, nifedipine 30 mg by mouth once a day, Bernard 51 tab by mouth every 8 hours as needed for pain, omeprazole 20 mg by mouth daily, sertraline 100 mg by mouth daily. His vital signs and lab work was consistent with sepsis likely related to COVID 19 and possible superimposed pneumonia. He was started on Rocephin and doxycycline along with hydroxychloroquine. Infectious disease was consulted and followed the patient. He did have a UTI with urine culture showing Klebsiella pneumonia sensitive to Rocephin. Echocardiogram was done which showed EF 55-60% with mild concentric LVH. His respiratory status improved during his hospitalization but he continued to spike low-grade fevers. On 06/07/2019 was noted to be more altered. CT brain was done which showed nothing acute. Neurol nayeli was consulted and recommended increasing his Keppra as he may have had a breakthrough seizure. Carotid Doppler was done which was unremarkable. Objective - Vital Signs Vital signs: Vital Signs Temp 99.5 F 06/08/19 07:42 Pulse 100 06/08/19 08:00 Resp 20 06/08/19 08:00 BP 165/89 06/08/19 07:42 Pulse Ox 100 06/08/19 07:42 Intake & Output 06/07/19 06/08/19 06/08/19 18:59 06:59 18:59 Intake Total 168 Output Total 1100 650 Balance -932 -650 Intake: Oral 168 Output: Urine 1100 650 Other: Voiding Method Diaper Diaper Diaper - Exam General: [non toxic], [no distress], [appears at stated age] Derm: [warm], [dry] Head: [atraumatic], [normocephalic], [symmetric] Eyes: [EOMI], [no lid lag], [anicteric sclera] Mouth: [no lip lesion], [mucus membranes moist] Cardiovascular: [S1S2 reg], [no murmur], [positive DP pulse left lower extremity], Lungs: [Coarse breath sounds bilateral], [no rhonchi, no rales] , [no accessory muscle use] Abdominal: [soft], [ nontender to palpation], [no guarding], [no appreciable organomegaly] Ext: [no gross muscle atrophy], [no edema], [no contractures], [right BKA] Neuro: [0 out of 5 strength in the right upper extremity] Psych: [Alert], [oriented], [appropriate affect] - Labs CBC & Chem 7: 06/08/19 08:25 06/08/19 08:25 Labs: Abnormal Lab Results - Last 24 Hours (Table) 06/07/19 06/07/19 06/07/19 Range/Units 11:52 17:12 20:42 RBC (4.30-5.90) m/uL Hgb (13.0-17.5) gm/dL Hct (39.0-53.0) % Lymphocytes # (1.0-4.8) k/uL Chloride (98-107) mmol/L Carbon Dioxide (22-30) mmol/L Creatinine (0.66-1.25) mg/dL Glucose (74-99) mg/dL POC Glucose (mg/dL) 137 H 128 H 142 H (75-99) mg/dL 06/08/19 06/08/19 06/08/19 Range/Units 02:22 07:07 08:25 RBC 3.71 L (4.30-5.90) m/uL Hgb 9.6 L (13.0-17.5) gm/dL Hct 30.3 L (39.0-53.0) % Lymphocytes # 0.7 L (1.0-4.8) k/uL Chloride (98-107) mmol/L Carbon Dioxide (22-30) mmol/L Creatinine (0.66-1.25) mg/dL Glucose (74-99) mg/dL POC Glucose (mg/dL) 144 H 128 H (75-99) mg/dL 06/08/19 Range/Units 08:25 RBC (4.30-5.90) m/uL Hgb (13.0-17.5) gm/dL Hct (39.0-53.0) % Lymphocytes # (1.0-4.8) k/uL Chloride 108 H (98-107) mmol/L Carbon Dioxide 21 L (22-30) mmol/L Creatinine 0.54 L (0.66-1.25) mg/dL Glucose 139 H (74-99) mg/dL POC Glucose (mg/dL) (75-99) mg/dL Assessment and Plan Assessment: Altered mental status Sepsis likely related to COVID 19 pneumonia with possible superimposed bacterial pneumonia Troponin elevation likely demand ischemia from above process UTI History of CVA Diabetes mellitus History of seizures Hypertension Possible breakthrough seizure due to infectious source? CT brain and carotid D oppler negative. Plans: Keppra increased by neurology. Follow neurology recommendations. Seizure and fall precautions. Ativan as needed for seizures. Patient does meet sepsis criteria with low BP responding to IVF. T-max of 102.8 Fahrenheit at outside hospital, he continues to spike low-grade fevers and 06/08/2019. Tachycardia with positive source of infection seen on chest x-ray. Urine culture positive for Klebsiella pneumonia. Elevated CRP. Chest x-ray showing bibasilar airspace disease. Plans: Continue Rocephin and doxycycline for possible community-acquired pneumonia. Follow blood cultures from outside hospital. Follow sputum culture. Hydroxychloroquine for COVID. Tylenol as needed for fever. Repeat chest x-ray tomorrow morning. Follow CPK, LDH, CRP, ferritin. Infectious disease consulted. Troponin 0.18, 0.19, less than 0.012 with EKG showing sinus tachycardia and T- wave abnormality. Echocardiogram shows EF 55-60%. Plans: ACS ruled out. Telemetry monitoring. Urine culture positive Klebsiella pneumonia. Plans: Continue Rocephin. Plans: Continue aspirin. Continue Lipitor. Plans: Insulin sliding scale. Regular Accu-Cheks. Hypoglycemic precautions. Plans: Continue Keppra. Plans: Continue lisinopril. Continue nifedipine. Monitor vitals, adjust medications as necessary. [Patient currently on 2 L nasal cannula. Continues to spike fevers. Treated with hydroxychloroquine. Possible breakthrough seizure on 06/07/2019. Infectious disease and neurology following. He will go back to [facility] after 48 hours afebrile. He is pending clinical improvement. Likely DC in 1-2 days.]
[2019-06-08 16:24] LABS: Glucose,Whole Blood 144 mg/dL (75-99)
[2019-06-08 20:59] LABS: Glucose,Whole Blood 156 mg/dL (75-99)
--- NOTE | 2019-06-09 00:02 | PN ---
PROGRESS NOTE DATE OF SERVICE: 06/08/2019. REASON FOR FOLLOW UP: Acute COVID-19 pneumonia and UTI. INTERVAL HISTORY: The patient is currently afebrile. The patient has been breathing comfortably on room air. The patient apparently has been refusing most of his care and not eating. No vomiting or diarrhea has been reported. PHYSICAL EXAMINATION: Blood pressure 159/93 with a pulse of temperature 98.2. He is 98% on room air. General description: The patient is an elderly male lying in bed in no distress. Respiratory system: Unlabored breathing. Clear to auscultation anteriorly. Heart S1, S2. Regular rate and rhythm. Abdomen soft, no tenderness. LABS: Hemoglobin 9.8, white count 4.0, BUN of 13, creatinine 0.54. DIAGNOSTIC IMPRESSION AND PLAN: 1. Patient with acute Covid-19 pneumonia seemed to have shown clinical improvement. The patient has completed a 5-day course of Plaquenil. To continue with zinc and monitor clinical course closely. 2. Patient with Klebsiella urinary tract infection for which the patient is currently covered with Rocephin. 3. Continue supportive care. MMODL / IJN: [id number] /
[2019-06-09 02:49] LABS: Glucose,Whole Blood 139 mg/dL (75-99)
[2019-06-09 06:14] LABS: Glucose,Whole Blood 169 mg/dL (75-99)
[2019-06-09] MEDS ORDERED: levETIRAcetam IV 1,000 MG in SALINE 1 100ML.BAG IVPB STA (06:18)
[2019-06-09 06:19] LABS: ABG HCO3 18 mmol/L (21-25); ABG Oxygen Saturation 94.9 % (94-97); ABG PCO2 35 mmHg (35-45); ABG PH 7.32 (7.35-7.45); ABG PO2 80 mmHg (83-108); ABG TCO2 19 mmol/L (19-24); Allen Test Performed? Yes
--- NOTE | 2019-06-09 06:40 | XR ---
EXAMINATION TYPE: XR chest 1V portable DATE OF EXAM: 06/09/2019 COMPARISON: NONE HISTORY: Short of breath TECHNIQUE: Single view FINDINGS: There is blunting of the costophrenic angles. There is airspace infiltrates and atelectasis at the lung bases. There are chest leads. IMPRESSION: Basilar pulmonary infiltrates and atelectasis and pleural fluid unchanged. No gross heart failure.
[2019-06-09 07:06] LABS: Basophils % (A) 0 %; Eosinophils % (A) 0 %; HCT 30.2 % (39.0-53.0); HGB 9.4 gm/dL (13.0-17.5); Hypochromasia Slight; Lymphocytes # (A) 0.7 k/uL (1.0-4.8); Lymphocytes % (A) 10 %; MCH 25.8 pg (25.0-35.0); MCV 83.2 fL (80.0-100.0); Mean Platelet Volume 8.2; Monocytes # (A) 0.3 k/uL (0-1.0); Monocytes % (A) 5 %; Neutrophils # (A) 5.7 k/uL (1.3-7.7); Neutrophils % (A) 84 %; Platelet Count 190 k/uL (150-450); RBC 3.63 m/uL (4.30-5.90); RDW 15.4 % (11.5-15.5); WBC 6.8 k/uL (3.8-10.6)
[2019-06-09 07:17] LABS: African American GFR (CKD) >90 (>60 ml/min/1.73 sqM); Anion Gap 14 mmol/L; Blood Urea Nitrogen 14 mg/dL (9-20); Calcium 8.7 mg/dL (8.4-10.2); Carbon Dioxide 18 mmol/L (22-30); Chloride 110 mmol/L (98-107); Glucose 191 mg/dL (74-99); Magnesium 1.6 mg/dL (1.6-2.3); Non-African American GFR(CKD) >90 (>60 ml/min/1.73 sqM); Potassium 3.8 mmol/L (3.5-5.1); Sodium 142 mmol/L (137-145)
[2019-06-09 07:22] LABS: Amorphous Sediment,Urine Rare /hpf; Appearance,Urine Clear (Clear); Bacteria,Urine Few /hpf; Bilirubin,Urine Negative (Negative); Blood,Urine Small (Negative); Color,Urine Yellow; Glucose,Urine (UA) 3+ (Negative); Ketones,Urine 1+ (Negative); Leukocyte Esterase,Urine Negative (Negative); Mucus,Urine Rare /hpf; Nitrite,Urine Negative (Negative); PH, Urine 5.5 (5.0-8.0); Protein,Urine 2+ (Negative); RBC,Urine 2 /hpf (0-5); Specific Gravity,Urine 1.015 (1.001-1.035); Squamous Epithelial Cell,Urine <1 /hpf (0-4); Urobilinogen,Urine <2.0 mg/dL (<2.0); WBC,Urine 8 /hpf (0-5)
[2019-06-09] MEDS: INSULIN ASPART (NovoLOG) 100 UNIT/ML VIAL SQ SCH ×3 (08:26→17:19)
[2019-06-09] MEDS: HEPARIN SODIUM,PORCINE 5,000 UNIT/ML 1 ML VIAL SQ SCH ×2 (08:30→20:28)
[2019-06-09] MEDS: ASPIRIN 81 MG PO SCH (08:55)
[2019-06-09] MEDS: ZINC SULFATE 220 MG CAP PO SCH (08:56)
[2019-06-09] MEDS: NIFEdipine XL 30 MG TAB.ER.24 PO SCH (08:56)
[2019-06-09] MEDS: SERTRALINE 100 MG TAB PO SCH (08:56)
[2019-06-09] MEDS: DOXYCYCLINE 100 MG CAP PO SCH ×2 (08:56→20:28)
[2019-06-09] MEDS: PREGABALIN 75 MG CAP PO SCH ×2 (08:56→20:28)
[2019-06-09] MEDS: LISINOPRIL 10 MG TAB PO SCH (08:56)
[2019-06-09] MEDS: ATORVASTATIN 40 MG TAB PO SCH (08:56)
[2019-06-09 11:22] LABS: Glucose,Whole Blood 187 mg/dL (75-99)
[2019-06-09 16:42] LABS: Glucose,Whole Blood 190 mg/dL (75-99)
--- NOTE | 2019-06-09 18:00 | P.PN ---
Subjective Progress Note Date: 06/09/19 Principal diagnosis: COVID19, AMS 69-year-old male with PMH of CVA with right-sided weakness, history of seizures, diabetes mellitus, hypertension presents to the ED for shortness of breath. Patient states that the symptoms of been ongoing for the past 2 weeks. He complains of cough and inability to bring up sputum. Symptoms continue to worsen which prompted the patient to come to the ED. He denies any chest pain, palpitations, nausea or vomiting, fever or chills, changes in urination or bowel habits. No changes in appetite or weight. EKG showed sinus tachycardia with heart rate 103, T-wave abnormalities. Patient was noted to have a T-max of 102.8 Fahrenheit, BP as low as 93/44. He was given 2.5 L bolus. He was given Tylenol 650 mg by mouth. CBC showed hemoglobin of 10.5, hematocrit 35%. BUN was 35. Magnesium was 2. Albumin was 3.3. Troponin was 0.18, 0.19. CRP was 54.7. Lactic acid was negative. Urinalysis showed moderate leukocyte esterase. Chest x-ray showed mild bibasilar airspace disease. Patient was tested for COVID at that time. Pro-calcitonin was elevated at 0.22. Blood cultures were collected. His home medication include aspirin 81 mg by mouth daily, Lipitor 40 mg by mouth daily, lispro on a sliding scale, Lantus 10 units at bedtime, Keppra 250 mg by mouth twice a day, lisinopril 10 mg by mouth once a day, Lyrica 150 mg by mouth twice a day, nifedipine 30 mg by mouth once a day, Rosepine 51 tab by mouth every 8 hours as needed for pain, omeprazole 20 mg by mouth daily, sertraline 100 mg by mouth daily. His vital signs and lab work was consistent with sepsis likely related to COVID 19 and possible superimposed pneumonia. He was started on Rocephin and doxycycline along with hydroxychloroquine. Infectious disease was consulted and followed the patient. He did have a UTI with urine culture showing Klebsiella pneumonia sensitive to Rocephin. Echocardiogram was done which showed EF 55-60% with mild concentric LVH. His respiratory status improved during his hospitalization but he continued to spike low-grade fevers. On 06/07/2019 was noted to be more altered. CT brain was done which showed nothing acute. Neurol ogy was consulted and recommended increasing his Keppra as he may have had a breakthrough seizure. Carotid Doppler was done which was unremarkable. Patient was seen and examined. Apparently this morning patient had a grand mal seizure and was given Ativan IV. He appears postictal at this time. Responding to sternal rub but otherwise unresponsive. Objective - Vital Signs Vital signs: Vital Signs Temp 97.9 F 06/09/19 15:00 Pulse 104 H 06/09/19 15:00 Resp 20 06/09/19 15:00 BP 126/61 06/09/19 15:00 Pulse Ox 98 06/09/19 15:00 Intake & Output 06/08/19 06/09/19 06/09/19 18:59 06:59 18:59 Intake Total 640 Output Total 500 700 650 Balance -500 -60 -650 Intake: Intake, IV Titration 640 Amount Sodium Chloride 0.9% 1, 640 000 ml @ 75 mls/hr IV . [id number] [facility] Rx#:[id number] Output: Urine 500 700 650 Other: Voiding Method Diaper Diaper Diaper - Exam General: [non toxic], [no distress], [appears at stated age] Derm: [warm], [dry] Head: [atraumatic], [normocephalic], [symmetric] Eyes: [EOMI], [no lid lag], [anicteric sclera] Mouth: [no lip lesion], [mucus membranes moist] Cardiovascular: [S1S2 reg], [tachycardic], [positive DP pulse left lower extremity], Lungs: [Coarse breath sounds bilateral], [no rhonchi, no rales] , [no accessory muscle use] Abdominal: [soft], [ nontender to palpation], [no guarding], [no appreciable organomegaly] Ext: [no gross muscle atrophy], [no edema], [no contractures], [right BKA] Neuro: [Unable to determine] Psych: [Unresponsive only responding to sternal rub] - Labs CBC & Chem 7: 06/09/19 06:55 06/09/19 06:55 Labs: Abnormal Lab Results - Last 24 Hours (Table) 06/08/19 06/09/19 06/09/19 Range/Units 20:56 02:46 06:06 RBC (4.30-5.90) m/uL Hgb (13.0-17.5) gm/dL Hct (39.0-53.0) % Lymphocytes # (1.0-4.8) k/uL ABG pH (7.35-7.45) ABG pO2 (83-108) mmHg ABG HCO3 (21-25) mmol/L Chloride (98-107) mmol/L Carbon Dioxide (22-30) mmol/L Creatinine (0.66-1.25) mg/dL Glucose (74-99) mg/dL POC Glucose (mg/dL) 156 H 139 H 169 H (75-99) mg/dL Plasma Lactic Acid Avery (0.7-2.0) mmol/L Urine Protein (Negative) Urine Glucose (UA) (Negative) Urine Ketones (Negative) Urine Blood (Negative) Urine WBC (0-5) /hpf Amorphous Sediment (None) /hpf Urine Bacteria (None) /hpf Urine Mucus (None) /hpf 06/09/19 06/09/19 06/09/19 Range/Units 06:13 06:55 06:55 RBC 3.63 L (4.30-5.90) m/uL Hgb 9.4 L (13.0-17.5) gm/dL Hct 30.2 L (39.0-53.0) % Lymphocytes # 0.7 L (1.0-4.8) k/uL ABG pH 7.32 L (7.35-7.45) ABG pO2 80 L (83-108) mmHg ABG HCO3 18 L (21-25) mmol/L Chloride 110 H (98-107) mmol/L Carbon Dioxide 18 L (22-30) mmol/L Creatinine 0.56 L (0.66-1.25) mg/dL Glucose 191 H (74-99) mg/dL POC Glucose (mg/dL) (75-99) mg/dL Plasma Lactic Acid Avery (0.7-2.0) mmol/L Urine Protein (Negative) Urine Glucose (UA) (Negative) Urine Ketones (Negative) Urine Blood (Negative) Urine WBC (0-5) /hpf Amorphous Sediment (None) /hpf Urine Bacteria (None) /hpf Urine Mucus (None) /hpf 06/09/19 06/09/19 06/09/19 Range/Units 06:55 07:05 11:18 RBC (4.30-5.90) m/uL Hgb (13.0-17.5) gm/dL Hct (39.0-53.0) % Lymphocytes # (1.0-4.8) k/uL ABG pH (7.35-7.45) ABG pO2 (83-108) mmHg ABG HCO3 (21-25) mmol/L Chloride (98-107) mmol/L Carbon Dioxide (22-30) mmol/L Creatinine (0.66-1.25) mg/dL Glucose (74-99) mg/dL POC Glucose (mg/dL) 187 H (75-99) mg/dL Plasma Lactic Acid Avery 3.2 H* (0.7-2.0) mmol/L Urine Protein 2+ H (Negative) Urine Glucose (UA) 3+ H (Negative) Urine Ketones 1+ H (Negative) Urine Blood Small H (Negative) Urine WBC 8 H (0-5) /hpf Amorphous Sediment Rare H (None) /hpf Urine Bacteria Few H (None) /hpf Urine Mucus Rare H (None) /hpf 06/09/19 Range/Units 16:40 RBC (4.30-5.90) m/uL Hgb (13.0-17.5) gm/dL Hct (39.0-53.0) % Lymphocytes # (1.0-4.8) k/uL ABG pH (7.35-7.45) ABG pO2 (83-108) mmHg ABG HCO3 (21-25) mmol/L Chloride (98-107) mmol/L Carbon Dioxide (22-30) mmol/L Creatinine (0.66-1.25) mg/dL Glucose (74-99) mg/dL POC Glucose (mg/dL) 190 H (75-99) mg/dL Plasma Lactic Acid Avery (0.7-2.0) mmol/L Urine Protein (Negative) Urine Glucose (UA) (Negative) Urine Ketones (Negative) Urine Blood (Negative) Urine WBC (0-5) /hpf Amorphous Sediment (None) /hpf Urine Bacteria (None) /hpf Urine Mucus (None) /hpf Assessment and Plan Assessment: Metabolic encephalopathy due to Seizure Lactic acidosis Sepsis likely related to COVID 19 pneumonia with possible superimposed bacterial pneumonia Troponin elevation likely demand ischemia from above process UTI History of CVA Diabetes mellitus Hypertension Possible breakthrough seizure due to infectious source? CT brain and carotid Doppler negative. Plans: Keppra increased by neurology. Patient started on IV Keppra. Follow neurology recommendations. Seizure and fall precautions. Ativa n as needed for seizures. Likely related to seizure activity this morning. Plans: Repeat lactic acid negative. Patient does meet sepsis criteria with low BP responding to IVF. T-max of 102.8 Fahrenheit at outside hospital, he continues to spike low-grade fevers and 06/08/2019. Tachycardia with positive source of infection seen on chest x-ray. Urine culture positive for Klebsiella pneumonia. Elevated CRP. Chest x-ray showing bibasilar airspace disease. Plans: Continue Rocephin and doxycycline for possible community-acquired pneumonia. Follow blood cultures from outside hospital. Follow sputum culture. Hydroxychloroquine for COVID. Tylenol as needed for fever. Repeat chest x-ray tomorrow morning. Follow CPK, LDH, CRP, ferritin. Infectious disease consulted. Troponin 0.18, 0.19, less than 0.012 with EKG showing sinus tachycardia and T- wave abnormality. Echocardiogram shows EF 55-60%. Plans: ACS ruled out. Telemetry monitoring. Urine culture positive Klebsiella pneumonia. Plans: Continue Rocephin. Plans: Continue aspirin. Continue Lipitor. Plans: Insulin sliding scale. Regular Accu-Cheks. Hypoglycemic precautions. Plans: Continue lisinopril. Continue nifedipine. Monitor vitals, adjust medications as necessary. [Patient had a seizure on 06/09/2019. He does have a history of seizure which is likely precipitated by his infectious source, COVID 19 and UTI. Infectious disease and neurology following. Nursing discussed code status with his brother, and he has been changed to NO CODE. Progonosis is guarded.]
[2019-06-09] MEDS: SODIUM CHLORIDE 0.9% 1,000 ML IV SCH ×3 (18:59→22:54)
[2019-06-09 20:09] LABS: Glucose,Whole Blood 149 mg/dL (75-99)
[2019-06-09] MEDS: levETIRAcetam IV 500 MG in SODIUM CHLORIDE 0.9% 100 ML IVPB SCH (20:32)
--- NOTE | 2019-06-09 22:50 | PN ---
PROGRESS NOTE DATE OF SERVICE: 06/09/2019 REASON FOR FOLLOWUP: Acute COVID-19 pneumonia. INTERVAL HISTORY: The patient is currently afebrile. The patient did have a tonic-clonic seizure witnessed this morning. The patient has been started on IV Lamictal. The patient is hemodynamically stable. He did have a low-grade fever of 100.5 this morning but afebrile since then. Saturating well, 99% on 2 L nasal cannula. The patient did not provide any history. No vomiting or diarrhea has been reported. The patient has been refusing his pills. PHYSICAL EXAMINATION: Blood pressure 135/80 with a pulse of 92, temperature 99.2. He is 99% on 2 L nasal cannula. General description is an elderly male lying in bed in no distress. Respiratory system: Unlabored breathing, decreased breath sounds in the bases. No wheeze. Heart: S1, S2. Regular rate and rhythm. Abdomen soft, no tenderness. LABS: Hemoglobin 9.4, white count 6.8. BUN of 14, creatinine 0.56. DIAGNOSTIC IMPRESSION AND PLAN: 1. Patient with acute COVID-19 pneumonia. The patient has completed his Plaquenil therapy. Continue with zinc. Short course of tapering prednisone. 2. The patient with Klebsiella urinary tract infection for which the patient is on Rocephin. That can be discontinued on discharge. MMODL / IJN: [id number] /
[2019-06-10 02:09] LABS: Glucose,Whole Blood 138 mg/dL (75-99)
[2019-06-10 06:49] LABS: Glucose,Whole Blood 148 mg/dL (75-99)
[2019-06-10] MEDS: INSULIN ASPART (NovoLOG) 100 UNIT/ML VIAL SQ SCH ×3 (06:54→17:02)
[2019-06-10] MEDS: levETIRAcetam IV 500 MG in SODIUM CHLORIDE 0.9% 100 ML IVPB SCH (08:29)
[2019-06-10] MEDS: HEPARIN SODIUM,PORCINE 5,000 UNIT/ML 1 ML VIAL SQ SCH ×2 (08:29→20:49)
[2019-06-10] MEDS: ATORVASTATIN 40 MG TAB PO SCH (08:38)
[2019-06-10] MEDS: DOXYCYCLINE 100 MG CAP PO SCH ×2 (08:38→20:47)
[2019-06-10] MEDS: LISINOPRIL 10 MG TAB PO SCH (08:38)
[2019-06-10] MEDS: ASPIRIN 81 MG PO SCH (08:38)
[2019-06-10] MEDS: NIFEdipine XL 30 MG TAB.ER.24 PO SCH (08:38)
[2019-06-10] MEDS: PREGABALIN 75 MG CAP PO SCH ×2 (08:39→20:48)
[2019-06-10] MEDS: SERTRALINE 100 MG TAB PO SCH (08:39)
[2019-06-10] MEDS: ZINC SULFATE 220 MG CAP PO SCH (08:39)
[2019-06-10 11:45] LABS: Glucose,Whole Blood 164 mg/dL (75-99)
--- NOTE | 2019-06-10 12:42 | P.PN ---
Subjective Progress Note Date: 06/10/19 Principal diagnosis: COVID19, AMS 69-year-old male with PMH of CVA with right-sided weakness, history of seizures, diabetes mellitus, hypertension presents to the ED for shortness of breath. Patient states that the symptoms of been ongoing for the past 2 weeks. He complains of cough and inability to bring up sputum. Symptoms continue to worsen which prompted the patient to come to the ED. He denies any chest pain, palpitations, nausea or vomiting, fever or chills, changes in urination or bowel habits. No changes in appetite or weight. EKG showed sinus tachycardia with heart rate 103, T-wave abnormalities. Patient was noted to have a T-max of 102.8 Fahrenheit, BP as low as 93/44. He was given 2.5 L bolus. He was given Tylenol 650 mg by mouth. CBC showed hemoglobin of 10.5, hematocrit 35%. BUN was 35. Magnesium was 2. Albumin was 3.3. Troponin was 0.18, 0.19. CRP was 54.7. Lactic acid was negative. Urinalysis showed moderate leukocyte esterase. Chest x-ray showed mild bibasilar airspace disease. Patient was tested for COVID at that time. Pro-calcitonin was elevated at 0.22. Blood cultures were collected. His home medication include aspirin 81 mg by mouth daily, Lipitor 40 mg by mouth daily, lispro on a sliding scale, Lantus 10 units at bedtime, Keppra 250 mg by mouth twice a day, lisinopril 10 mg by mouth once a day, Lyrica 150 mg by mouth twice a day, nifedipine 30 mg by mouth once a day, [place] 51 tab by mouth every 8 hours as needed for pain, omeprazole 20 mg by mouth daily, sertraline 100 mg by mouth daily. His vital signs and lab work was consistent with sepsis likely related to COVID 19 and possible superimposed pneumonia. He was started on Rocephin and doxycycline along with hydroxychloroquine. Infectious disease was consulted and followed the patient. He did have a UTI with urine culture showing Klebsiella pneumonia sensitive to Rocephin. Echocardiogram was done which showed EF 55-60% with mild concentric LVH. His respiratory status improved during his hospitalization but he continued to spike low-grade fevers. On 06/07/2019 was noted to be more altered. CT brain was done which showed nothing acute. Neurol ogy was consulted and recommended increasing his Keppra as he may have had a breakthrough seizure. Carotid Doppler was done which was unremarkable Patient seen and examined at bedside has a condom catheter in place, patient appears much more awake and alert today, reported that he will attempt to take his medications. No seizure activity overnight Objective - Vital Signs Vital signs: Vital Signs Temp 98.2 F 06/10/19 11:21 Pulse 104 H 06/10/19 11:21 Resp 18 06/10/19 11:21 BP 132/83 06/10/19 11:21 Pulse Ox 92 L 06/10/19 11:21 Intake & Output 06/09/19 06/10/19 06/10/19 18:59 06:59 18:59 Intake Total 10 Output Total 650 Balance -650 10 Intake: Oral 10 Output: Urine 650 Other: Voiding Method Diaper Diaper # Voids 1 # Bowel Movements 1 - Exam Constitutional: No acute distress, somnolent but arousable Eyes: Anicteric sclerae, moist conjunctiva, no lid-lag, PERRLA ENMT: NC/AT,Oropharynx clear, no erythema, exudates Neck:Supple, FROM, no masses, or JVD, No carotid bruits; No thyromegaly Lungs: Clear to auscultation, Clear to percussion, Normal respiratory effort, no accessory muscle use Cardiovascular: Heart regular in rate and rhythm, No murmurs, gallops, or rubs no peripheral edema Abdominal: Soft Nontender, nom distended, no guarding, no rebound or rigidity, Normoactive bowel sounds No hepatomegaly, No splenomegaly, No palpable mass No abdominal wall hernia noted Skin: Normal temperature, tone, texture, turgor, No induration No subcutaneous nodules, No rash, lesions, No ulcers Extremities:No digital cyanosis No clubbing, Pedal pulses intact and symmetrical Radial pulses intact and symmetrical Normal gait and station, No calf tenderness Neuro: Answering questions, awake and alert - Labs CBC & Chem 7: 06/09/19 06:55 06/09/19 06:55 Labs: Abnormal Lab Results - Last 24 Hours (Table) 06/09/19 06/09/19 06/09/19 Range/Units 06:55 16:40 20:08 POC Glucose (mg/dL) 190 H 149 H (75-99) mg/dL Levetiracetam 2.4 L (3.0-60.0) ug/mL 06/10/19 06/10/19 06/10/19 Range/Units 02:07 06:47 11:43 POC Glucose (mg/dL) 138 H 148 H 164 H (75-99) mg/dL Levetiracetam (3.0-60.0) ug/mL Microbiology - Last 24 Hours (Table) 06/09/19 06:55 Blood Culture - Preliminary Blood No Growth after 24 hours Assessment and Plan Assessment: Metabolic encephalopathy due to Seizure Lactic acidosis Sepsis likely related to COVID 19 pneumonia with possible superimposed bacterial pneumonia Troponin elevation likely demand ischemia from above process UTI History of CVA Diabetes mellitus Hypertension Possible breakthrough seizure due to infectious source? CT brain and carotid Doppler negative. Plans: Keppra increased by neurology. Patient started on IV Keppra. Follow neurology recommendations. Seizure and fall precautions. Ativan as needed for seizures. Likely related to seizure activity this morning. Plans: Repeat lactic acid negative. Patient does meet sepsis criteria with low BP responding to IVF. T-max of 102.8 Fahrenheit at outside hospital, he continues to spike low-grade fevers and 06/08/2019. Tachycardia with positive source of infection seen on chest x-ray. Urine culture positive for Klebsiella pneumonia. Elevated CRP. Chest x-ray showing bibasilar airspace disease. Plans: Continue Rocephin and doxycycline for possible community-acquired pneumonia. Follow blood cultures from outside hospital. Follow sputum culture. Hydroxychloroquine for COVID. Tylenol as needed for fever. Repeat chest x-ray tomorrow morning. Follow CPK, LDH, CRP, ferritin. Infectious disease consulted. Troponin 0.18, 0.19, less than 0.012 with EKG showing sinus tachycardia and T- wave abnormality. Echocardiogram shows EF 55-60%. Plans: ACS ruled out. Telemetry monitoring. Urine culture positive Klebsiella pneumonia. Plans: Continue Rocephin. Plans: Continue aspirin. Continue Lipitor. Plans: Insulin sliding scale. Regular Accu-Cheks. Hypoglycemic precautions. Plans: Continue lisinopril. Continue nifedipine. Monitor vitals, adjust medications as necessary. [Patient had a seizure on 06/09/2019. He does have a history of seizure which is likely precipitated by his infectious source, COVID 19 and UTI. Infectious disease and neurology following. Nursing discussed code status with his brother, and he has been changed to NO CODE. Progonosis is guarded.]
[2019-06-10] MEDS: SODIUM CHLORIDE 0.9% 1,000 ML IV SCH (14:44)
--- NOTE | 2019-06-10 15:58 | PN ---
PROGRESS NOTE DATE OF SERVICE: 06/10/2019 REASON FOR FOLLOWUP: Acute COVID-19 pneumonia. INTERVAL HISTORY: The patient is currently afebrile. The patient remains pleasantly confused, but no agitation has been noticed. No further seizure activity. He is unable to provide any history. PHYSICAL EXAMINATION: Blood pressure 134/83 with a pulse of 104. Temperature 98.2. He is 92% on 2 L. General description is an elderly male lying in bed in no distress. RESPIRATORY SYSTEM: Unlabored breathing. Clear to auscultation anteriorly. HEART: S1, S2. Regular rate and rhythm. ABDOMEN: Soft. No tenderness. LABS: No new labs have been obtained today. DIAGNOSTIC IMPRESSION AND PLAN: 1. Patient with acute COVID-19 pneumonia. The patient seems to have shown some clinical improvement. Unfortunately the patient has been refusing most of his medication. It is not clear whether he has completed his 5-day course of Plaquenil or not. Currently on zinc. 2. Patient with Klebsiella urinary tract infection, currently covered with Rocephin. Continue to monitor the patient closely. His prognosis remains guarded. MMODL / IJN: [id number] /
[2019-06-10 16:08] VITALS: BMI 25.6
[2019-06-10 17:02] LABS: Glucose,Whole Blood 166 mg/dL (75-99)
[2019-06-10] MEDS ORDERED: LORazepam 2 MG/ML INJ IM PRN (19:56)
[2019-06-10] MEDS ORDERED: cefTRIAXone 1,000 MG VIAL (IM USE) IM SCH (20:00)
[2019-06-10] MEDS: levETIRAcetam 500 MG TAB PO SCH (20:44)
[2019-06-10 20:46] LABS: Glucose,Whole Blood 155 mg/dL (75-99)
--- NOTE | 2019-06-10 22:13 | P.PN ---
Subjective Progress Note Date: 06/10/19 Patient is laying comfortably in the bed. Offers no new complaints. Still coughing. Patient mainly answers yes no questions. Objective - Vital Signs Vital signs: Vital Signs Temp 98.7 F 06/10/19 19:33 Pulse 106 H 06/10/19 19:33 Resp 20 06/10/19 19:33 BP 138/89 06/10/19 19:33 Pulse Ox 93 L 06/10/19 19:33 Intake & Output 06/10/19 06/10/19 06/11/19 06:59 18:59 06:59 Intake Total 10 Balance 10 Weight 93 kg Intake: Oral 10 Other: Voiding Method Diaper Diaper Incontinent # Voids 1 1 # Bowel Movements 1 - Exam Continues to be right spastic hemiparetic. Also has right below-knee amputation. Also has some expressive aphasia. - Labs CBC & Chem 7: 06/09/19 06:55 06/09/19 06:55 Labs: Abnormal Lab Results - Last 24 Hours (Table) 06/09/19 06/10/19 06/10/19 Range/Units 06:55 02:07 06:47 POC Glucose (mg/dL) 138 H 148 H (75-99) mg/dL Levetiracetam 2.4 L (3.0-60.0) ug/mL 06/10/19 06/10/19 06/10/19 Range/Units 11:43 16:59 20:45 POC Glucose (mg/dL) 164 H 166 H 155 H (75-99) mg/dL Levetiracetam (3.0-60.0) ug/mL Microbiology - Last 24 Hours (Table) 06/09/19 06:55 Blood Culture - Preliminary Blood No Growth after 24 hours Assessment and Plan Assessment: * 69-year-old male with history of CVA, right hemiparesis and seizure disorder, admitted with COVID-19 pneumonia. Patient had acute transient mental status change earlier today, suspect breakthrough complex partial seizure. * History of CVA with right hemiparesis * Seizure disorder * Peripheral vascular disease. * Diabetes. Plan: * Continue Keppra 500 mg twice a day. If patient has any breakthrough seizure, would recommend further increasing the dose of Keppra. * Carotid Doppler showed no significant internal carotid stenosis. Antegrade flow in both vertebral arteries. * Continue aspirin 81 mg and Lipitor 40 mg. * Neurology will sign off. * Please call neurology if you have any further concerns.
[2019-06-11] MEDS: SODIUM CHLORIDE 0.9% 1,000 ML IV SCH (04:36)
[2019-06-11 07:09] LABS: Glucose,Whole Blood 163 mg/dL (75-99)
[2019-06-11] MEDS: INSULIN ASPART (NovoLOG) 100 UNIT/ML VIAL SQ SCH ×2 (07:28→12:34)
[2019-06-11] MEDS: SERTRALINE 100 MG TAB PO SCH (07:39)
[2019-06-11] MEDS: LISINOPRIL 10 MG TAB PO SCH (07:39)
[2019-06-11] MEDS: ATORVASTATIN 40 MG TAB PO SCH (07:39)
[2019-06-11] MEDS: ASPIRIN 81 MG PO SCH (07:39)
[2019-06-11] MEDS: NIFEdipine XL 30 MG TAB.ER.24 PO SCH (07:39)
[2019-06-11] MEDS: ZINC SULFATE 220 MG CAP PO SCH (07:39)
[2019-06-11] MEDS: HEPARIN SODIUM,PORCINE 5,000 UNIT/ML 1 ML VIAL SQ SCH (07:39)
[2019-06-11] MEDS: PREGABALIN 75 MG CAP PO SCH (07:39)
[2019-06-11] MEDS: levETIRAcetam 500 MG TAB PO SCH (07:57)
[2019-06-11 08:08] VITALS: TEMP 97.5
--- NOTE | 2019-06-11 12:03 | P.DS ---
Providers Date of admission: 06/03/19 16:36 Expected date of discharge: 06/11/19 Attending physician: Kendra Marrero DO Consults: 06/03/19 19:31 Consult Physician Routine Consulting Provider: Jovan Dumont Consult Reason/Comments: fever and sepsis Do you want consulting provider notified?: Yes 06/07/19 12:46 Consult Physician Stat Consulting Provider: Aggie Rico Consult Reason/Comments: AMS, new mental status changes Do you want consulting provider notified?: Yes Primary care physician: Stated None Hospital Course: Discharge diagnoses Covid pneumonia Sepsis Metabolic encephalopathy Breakthrough complex partial seizure Klebsiella UTI Type 2 diabetes History of CVA Essential hypertension Hospital course 69-year-old male with PMH of CVA with right-sided weakness, history of seizures, diabetes mellitus, hypertension presents to the ED for shortness of breath was admitted for sepsis with suspected covid pneumonia after initial Chest x-ray showed mild bibasilar airspace disease. Patient was tested for COVID at that time. Pro-calcitonin was elevated at 0.22. EKG showed sinus tachycardia with heart rate 103, T-wave abnormalities. Patient was noted to have a T-max of 102.8 Fahrenheit, BP as low as 93/44. He was given 2.5 L bolus. He was given Tylenol 650 mg by mouth. CBC showed hemoglobin of 10.5, hematocrit 35%. BUN was 35. Magnesium was 2. Albumin was 3.3. Troponin was 0.18, 0.19. CRP was 54.7. Lactic acid was negative. Urinalysis showed moderate leukocyte esterase. Urine and Blood cultures were collected. The patient was started on empiric IV antibiotic therapy with IV Rocephin and doxycycline along with hydroxychloroquine. The urine cultures grew Klebsiella pneumoniae, troponin was mildly elevated and determined to be secondary to demand ischemia in the setting of sepsis. Echocardiogram done showed preserved LV EF of 55-60% with mild concentric LVH. CT of the head showed no acute intracranial pathology. Carotid Dopplers did not suggest any carotid disease The patient was noted to have some metabolic encephalopathy secondary to a breakthrough complex partial seizure in the setting of sepsis the patient is Keppra level was subtherapeutic at 2.4 hence his dosage was increased to 500 mg BID. Patient status gradually improved and he was subsequently discharged back to his ECF. This discharge process took approximately 35 minutes Focused exam Respiratory: Diminished in the bases with faint bibasilar crackles unlabored on baseline O2 requirements of 3 L via nasal cannula Neuro: Awake/alert answering questions appropriately Plan - Discharge Summary Discharge Rx Participant: Yes New Discharge Prescriptions: New levETIRAcetam [Keppra] 500 mg PO Q12HR #60 tab Continue Sertraline [Zoloft] 100 mg PO DAILY Omeprazole 20 mg PO DAILY HYDROcodone/APAP 5-325MG [[place] 5-325] 1 tab PO Q8H PRN PRN Reason: Pain Acetaminophen Tab [Tylenol] 650 mg PO Q6H PRN PRN Reason: Pain NIFEdipine [NIFEdipine ER] 30 mg PO DAILY Multivitamins, Thera [Multivitamin (formulary)] 1 tab PO DAILY Pregabalin [Lyrica] 150 mg PO BID Magnesium Oxide [Magox 400] 400 mg PO DAILY Lisinopril [Zestril] 10 mg PO DAILY Insulin Glargine,Hum.rec.anlog [Lantus Solostar] 10 unit SQ HS Hydrocerin Cream 1 applic TOPICAL Q12H PRN PRN Reason: dry, scaly feet INSULIN LISPRO (HumaLOG) [humaLOG] See Protocol SQ ACHS Atorvastatin Calcium [Lipitor] 40 mg PO DAILY Aspirin EC [Ecotrin Low Dose] 81 mg PO DAILY Ascorbic Acid [Vitamin C] 500 mg PO DAILY Discontinued Methocarbamol [Robaxin] 750 mg PO BID levETIRAcetam 250 mg PO BID Discharge Medication List Acetaminophen Tab [Tylenol] 650 mg PO Q6H PRN 06/03/19 [History] Ascorbic Acid [Vitamin C] 500 mg PO DAILY 06/03/19 [History] Aspirin EC [Ecotrin Low Dose] 81 mg PO DAILY 06/03/19 [History] Atorvastatin Calcium [Lipitor] 40 mg PO DAILY 06/03/19 [History] HYDROcodone/APAP 5-325MG [[place] 5-325] 1 tab PO Q8H PRN 06/03/19 [History] Hydrocerin Cream 1 applic TOPICAL Q12H PRN 06/03/19 [History] INSULIN LISPRO (HumaLOG) [humaLOG] See Protocol SQ ACHS 06/03/19 [History] Insulin Glargine,Hum.rec.anlog [Lantus Solostar] 10 unit SQ HS 06/03/19 [History] Lisinopril [Zestril] 10 mg PO DAILY 06/03/19 [History] Magnesium Oxide [Magox 400] 400 mg PO DAILY 06/03/19 [History] Multivitamins, Thera [Multivitamin (formulary)] 1 tab PO DAILY 06/03/19 [History] NIFEdipine [NIFEdipine ER] 30 mg PO DAILY 06/03/19 [History] Omeprazole 20 mg PO DAILY 06/03/19 [History] Pregabalin [Lyrica] 150 mg PO BID 06/03/19 [History] Sertraline [Zoloft] 100 mg PO DAILY 06/03/19 [History] levETIRAcetam [Keppra] 500 mg PO Q12HR #60 tab 06/11/19 [Rx] Activity/Diet/Wound Care/Special Instructions: Return to [facility].
[2019-06-11 12:08] LABS: Glucose,Whole Blood 192 mg/dL (75-99)
[2019-06-11 12:51] VITALS: BP 98/60; PULSE 88; RESP 14
--- NOTE | 2019-06-11 16:05 | PN ---
PROGRESS NOTE DATE OF SERVICE: 06/11/2019 REASON FOR FOLLOWUP: Acute COVID-19 pneumonia. INTERVAL HISTORY: The patient is currently afebrile. The patient has been breathing comfortably. The patient remains slightly sleepy, lethargic; unable to provide any history. No vomiting or any diarrhea has been reported by the nursing staff. PHYSICAL EXAMINATION: Blood pressure 98/60 with a pulse of 88, temperature 97.5. He is 96% on 2 L nasal cannula. General description is an elderly male lying in bed in no distress. RESPIRATORY SYSTEM: Unlabored breathing with decreased intensity of breath sounds. No wheeze. HEART: S1, S2. Regular rate and rhythm. ABDOMEN: Soft. No tenderness. LABS: No new labs have been obtained today. DIAGNOSTIC IMPRESSION AND PLAN: 1. Patient with acute COVID-19 pneumonia that has been adequately treated. 2. Patient with Klebsiella urinary tract infection, adequately treated. No need for antibiotic on discharge. MMODL / IJN: [id number] /
--- NOTE | 2019-06-13 09:23 | CDI ---
Documentation Clarification Form Date: 06/13/2019 07:57:43 AM From: Ellie Madrid RN CCDS Admit Date: 06/03/2019 04:36:00 PM Patient Name: Kassandra Woodward Visit Number: [id number] Discharge Date: 06/11/2019 04:07:00 PM ATTENTION: The Clinical Documentation Specialists (CDI) and [facility] Coding Staff appreciate your assistance in clarifying documentation. Please respond to the clarification below the line at the bottom and electronically sign. The CDI & [facility] Coding staff will review the response and follow-up if needed. Please note: Queries are made part of the Legal Health Record. If you have any questions, please contact the author of this message via ITS. Dr. Perdomo, The patient was noted to have some metabolic encephalopathy secondary to a breakthrough complex partial seizure in the setting of sepsis the patient is Keppra level was subtherapeutic at 2.4 hence his dosage was increased to 500mg BID. History/Risk Factors: 69-year-old male presented as a transfer for COVID 19 relief. Medical History of DM2, Seizures and Clinical Indicators: 06/03 Internal Medicine Progress note - Alert, oriented, appropriate affect Labs: 06/08 Levetiracetam 2.4, CT Brain 06/06 No acute process. Treatment: 06/06 Increased Keppra to 500mg Po Bid Consults: 06/06 Neurology Patient had acute transient mental status change earlier today, suspect breakthrough complex seizure. Patient had slow mentation and was alert and oriented x1. In your professional opinion, can you please clarify Encephalopathy? Postictal state Septic Encephalopathy Metabolic Encephalopathy Other, please specify Unable to determine (Last Revision: May 2017) MTDD
== END 2019-06-11 16:07 | DRG 871 ==
LOC: 4SSUR 16:36 → EDBD 16:36
PROVIDERS: ADMIT Internal Medicine; ATTEND Internal Medicine
DX: A41.89 Other specified sepsis (principal); U07.1 COVID-19; G93.41 Metabolic encephalopathy; J12.89 Other viral pneumonia; I21.A1 Myocardial infarction type 2; E87.2 Acidosis; N39.0 Urinary tract infection, site not specified; G40.209 Localization-related (focal) (partial) symptomatic epilepsy and epileptic syndromes with complex partial seizures, not intractable, without status epilepticus; I69.351 Hemiplegia and hemiparesis following cerebral infarction affecting right dominant side; E11.51 Type 2 diabetes mellitus with diabetic peripheral angiopathy without gangrene; D72.810 Lymphocytopenia; R74.0 Nonspecific elevation of levels of transaminase and lactic acid dehydrogenase [LDH]; I10 Essential (primary) hypertension; B96.1 Klebsiella pneumoniae [K. pneumoniae] as the cause of diseases classified elsewhere; Z79.899 Other long term (current) drug therapy; Z79.4 Long term (current) use of insulin; Z79.82 Long term (current) use of aspirin; Z87.891 Personal history of nicotine dependence; Z89.511 Acquired absence of right leg below knee
CPT/HCPCS: 36600; 70450; 71045; 80048; 80053; 80177; 81001; 82550; 82728; 82805; 83605; 83615; 83735; 84145; 84484; 85025; 85379; 85610; 86140; 87040; 87077; 87086; 87186; 93005; 93306; 93880